=== PATIENT | male | born 1945 | race Caucasian/White ===

== ENCOUNTER 2018-03-16 08:37 | Emergency (ER) | payer MEDICARE ==
[2018-03-16 09:08] LABS: ABS Basophils 0 10^3/ul (0-0.2); ABS Eosinophils 0.1 10^3/ul (0-0.6); ABS Lymphocytes 1.8 10^3/ul (1.0-4.8); ABS Monocytes 0.6 10^3/ul (0-0.8); ABS Neutrophils 6.5 10^3/ul (1.5-7.7); ABS Nucleated RBC 0 10^3/ul; Hematocrit 37 % (42-52); Hemoglobin 12.2 g/dl (14.0-18.0); Mean Corpuscular HGB Conc 33 g/dl (31-36); Mean Corpuscular Hemoglobin 30 pg (27-31); Mean Corpuscular Volume 90 fL (80-94); Mean Platelet Volume 7.6 um3 (7.4-10.4); Nucleated Red Blood Cells % 0; Platelet Count 173 10^3/ul (150-450); Red Blood Count 4.08 10^6/ul (4.00-5.40); Red Cell Distribution Width 14 % (10.5-15)
[2018-03-16 09:27] LABS: INR 0.98 (0.77-1.02)
--- NOTE | 2018-03-16 09:35 | ED ---
HPI Chest Pain - HPI Summary HPI Summary: This patient is a 72 year old M presenting to [facility] with a chief complaint of chest congestion and sinus pressure. The patient reports having a sinus infection three weeks ago. He states it did not resolve even after his PCP prescribed him medication. He states nasal congestion came back along with chest pain radiating to his back. The patient reports the pain increases when he moves and takes deep breaths. He reports sinus congestion and denies fever, chills, post-nasal drip, and sore throat. The patient rates his pain 8/10 in severity. - History of Current Complaint Chief Complaint: EDChestPainROMI Time Seen by Provider: 03/16/18 08:51 Hx Obtained From: Patient Onset/Duration: Started Days Ago, Still Present Initial Severity: Moderate Current Severity: Moderate Pain Intensity: 8 Pain Scale Used: 0-10 Numeric Chest Pain Location: Diffuse Chest Pain Radiates To:: Back Character: Exertion Aggravating Factor(s): Exertion Alleviating Factor(s): Nothing Associated Signs and Symptoms: Positive: Chest Pain - Allergy/Home Medications Allergies/Adverse Reactions: Allergies Allergy/AdvReac Type Severity Reaction Status Date / Time No Known Allergies Allergy Verified 03/16/18 08:40 PMH/Surg Hx/FS Hx/Imm Hx Endocrine/Hematology History: Reports: Other Endocrine/Hematological Disorders - Nephrectomy, Right side Denies: Hx Diabetes Cardiovascular History: Reports: Hx Hypertension Infectious Disease History: No Infectious Disease History: Denies: Traveled Outside the [place] in Last 30 Days - Family History Known Family History: Positive: Other - Lung Cancer, mother - Social History Alcohol Use: Occasionally Smoking Status (MU): Former Smoker Type: Cigarettes Review of Systems Negative: Fever, Chills Positive: Nasal Discharge. Negative: Sore Throat Positive: Chest Pain Negative: Vomiting, Diarrhea, Nausea All Other Systems Reviewed And Are Negative: Yes Physical Exam - Summary Physical Exam Summary: VITAL SIGNS: Reviewed. GENERAL: Patient is a well-developed and nourished MALE who is lying comfortable in the stretcher. Patient is not in any acute respiratory distress.Obese. HEAD AND FACE: No signs of trauma. No ecchymosis, hematomas or skull depressions. No sinus tenderness.Nasal congestion. EYES: PERRLA, EOMI x 2, No injected conjunctiva, no nystagmus. EARS: Hearing grossly intact. Ear canals and tympanic membranes are within normal limits. MOUTH: Oropharynx within normal limits. NECK: Supple, trachea is midline, no adenopathy, no JVD, no carotid bruit, no c- spine tenderness, neck with full ROM. CHEST: Symmetric, reproducible chest tenderness. LUNGS: Coarse breath sounds bilaterally. No wheezing or crackles. CVS: Regular rate and rhythm, S1 and S2 present, no murmurs or gallops appreciated. ABDOMEN: Soft, non-tender. Distended. No rebound no guarding, and no masses palpated. Bowel sounds are normal. EXTREMITIES: FROM in all major joints, no edema, no cyanosis or clubbing. NEURO: Alert and oriented x 3. No acute neurological deficits. Speech is normal and follows commands. SKIN: Dry and warm Triage Information Reviewed: Yes Vital Signs On Initial Exam: Initial Vitals Temp Pulse Resp BP Pulse Ox 97.1 F 63 16 201/174 97 03/16/18 08:41 03/16/18 08:41 03/16/18 08:41 03/16/18 08:41 03/16/18 08:41 Vital Signs Reviewed: Yes Diagnostics - Vital Signs Vital Signs Temp Pulse Resp BP Pulse Ox 03/16/18 08:41 97.1 F 63 16 201/174 97 - Laboratory Lab Results: Lab Results 03/16/18 03/16/18 03/16/18 Range/Units 09:00 09:00 09:00 WBC 9.0 (3.5-10.8) 10^3/ul RBC 4.08 (4.00-5.40) 10^6/ul Hgb 12.2 L (14.0-18.0) g/dl Hct 37 L (42-52) % MCV 90 (80-94) fL MCH 30 (27-31) pg MCHC 33 (31-36) g/dl RDW 14 (10.5-15) % Plt Count 173 (150-450) 10^3/ul MPV 7.6 (7.4-10.4) um3 Neut % (Auto) 72.0 (38-83) % Lymph % (Auto) 20.0 L (25-47) % [place] % (Auto) 6.6 (0-7) % Eos % (Auto) 1.0 (0-6) % Baso % (Auto) 0.4 (0-2) % Absolute Neuts (auto) 6.5 (1.5-7.7) 10^3/ul Absolute Lymphs (auto) 1.8 (1.0-4.8) 10^3/ul Absolute Monos (auto) 0.6 (0-0.8) 10^3/ul Absolute Eos (auto) 0.1 (0-0.6) 10^3/ul Absolute Basos (auto) 0 (0-0.2) 10^3/ul Absolute Nucleated RBC 0 10^3/ul Nucleated RBC % 0 INR (Anticoag Therapy) 0.98 (0.77-1.02) APTT 33.8 (26.0-36.3) seconds Sodium 140 (135-145) mmol/L Potassium 4.5 (3.5-5.0) mmol/L Chloride 105 (101-111) mmol/L Carbon Dioxide 29 (22-32) mmol/L Anion Gap 6 (2-11) mmol/L BUN 21 (6-24) mg/dL Creatinine 1.01 (0.67-1.17) mg/dL Est GFR ( Amer) 88.4 (>60) Est GFR (Non-Af Amer) 73.0 (>60) BUN/Creatinine Ratio 20.8 H (8-20) Glucose 110 H (70-100) mg/dL Lactic Acid (0.5-2.0) mmol/L Calcium 9.1 (8.6-10.3) mg/dL Total Bilirubin 0.30 (0.2-1.0) mg/dL AST 16 (13-39) U/L ALT 18 (7-52) U/L Alkaline Phosphatase 63 (34-104) U/L Total Creatine Kinase 162 (10-223) U/L CK-MB (CK-2) 5.8 (0.6-6.3) ng/mL Troponin I 0.01 (<0.04) ng/mL B-Natriuretic Peptide ( - 100) pg/mL Total Protein 7.5 (6.4-8.9) g/dL Albumin 3.2 (3.2-5.2) g/dL Globulin 4.3 H (2-4) g/dL Albumin/Globulin Ratio 0.7 L (1-3) TSH Pending 03/16/18 03/16/18 Range/Units 09:00 09:00 WBC (3.5-10.8) 10^3/ul RBC (4.00-5.40) 10^6/ul Hgb (14.0-18.0) g/dl Hct (42-52) % MCV (80-94) fL MCH (27-31) pg MCHC (31-36) g/dl RDW (10.5-15) % Plt Count (150-450) 10^3/ul MPV (7.4-10.4) um3 Neut % (Auto) (38-83) % Lymph % (Auto) (25-47) % [place] % (Auto) (0-7) % Eos % (Auto) (0-6) % Baso % (Auto) (0-2) % Absolute Neuts (auto) (1.5-7.7) 10^3/ul Absolute Lymphs (auto) (1.0-4.8) 10^3/ul Absolute Monos (auto) (0-0.8) 10^3/ul Absolute Eos (auto) (0-0.6) 10^3/ul Absolute Basos (auto) (0-0.2) 10^3/ul Absolute Nucleated RBC 10^3/ul Nucleated RBC % INR (Anticoag Therapy) (0.77-1.02) APTT (26.0-36.3) seconds Sodium (135-145) mmol/L Potassium (3.5-5.0) mmol/L Chloride (101-111) mmol/L Carbon Dioxide (22-32) mmol/L Anion Gap (2-11) mmol/L BUN (6-24) mg/dL Creatinine (0.67-1.17) mg/dL Est GFR ( Amer) (>60) Est GFR (Non-Af Amer) (>60) BUN/Creatinine Ratio (8-20) Glucose (70-100) mg/dL Lactic Acid 1.0 (0.5-2.0) mmol/L Calcium (8.6-10.3) mg/dL Total Bilirubin (0.2-1.0) mg/dL AST (13-39) U/L ALT (7-52) U/L Alkaline Phosphatase (34-104) U/L Total Creatine Kinase (10-223) U/L CK-MB (CK-2) (0.6-6.3) ng/mL Troponin I (<0.04) ng/mL B-Natriuretic Peptide 51 ( - 100) pg/mL Total Protein (6.4-8.9) g/dL Albumin (3.2-5.2) g/dL Globulin (2-4) g/dL Albumin/Globulin Ratio (1-3) TSH Result Diagrams: 03/16/18 09:00 03/16/18 09:00 Lab Statement: Any lab studies that have been ordered have been reviewed, and results considered in the medical decision making process. - Radiology Chest XR Xray Interpretation: No Acute Changes Radiology Interpretation Completed By: Radiologist - No active cardiopulmonary disease is noted. ED Provider has reviewed this report. - EKG 0852 Cardiac Rate: NL - 68 BPM EKG Rhythm: Sinus Rhythm ST Segment: Normal Re-Evaluation - Re-Evaluation First Eval Re-Evaluation Time: 13:01 Change: Unchanged Comment: Discussed results and plan for discharge. Chest Pain Course/Dx - Course Assessment/Plan: This patient is a 72 year old M presenting to [facility] with a chief complaint of chest congestion and sinus pressure. The patient reports having a sinus infection three weeks ago. He states it did not resolve even after his PCP prescribed him medication. He states nasal congestion came back along with chest pain radiating to his back. The patient reports the pain increases when he moves and takes deep breaths. He reports sinus congestion and denies fever, chills, post-nasal drip, and sore throat. The patient rates his pain 8/10 in severity. Blood test results without any significant abnormality except for slight anemia, glucose of 110. And 2 troponins 4 hours apart is 0.01. Chest x-ray impression: no active cardiopulmonary disease. EKG shows no ST elevations. In the ED course the patient was given Toradol and after these medications the symptoms have significantly improved. The patient reports that the pain is only 1 out of 10 on only when he moves his left upper extremity or takes a deep breath. I have no suspicion at this point for acute, syndrome or pulmonary embolus is the patient is not hypoxic or tachycardic. Therefore the patient will be discharged home with follow-up with PCP. Patient is hemodynamically stable alert and oriented 3. I discussed all the findings and test results with the patient. Patient was instructed to return to the emergency room immediately if any of the symptoms return or worsens. Plan of care was discussed with the patient and understands and agrees. All questions were answered at patient satisfaction. There were no further complaints or concerns. Lung exam before discharge: CTA B/L. Good air exchange. No wheezing or crackles heard. CVS: S1 and S2 present. No murmurs appreciated. Patient is alert and oriented x 3. Patient is hemodynamically stable. Patient will be discharged home with follow up PCP in the next 2-3 days - Chest Pain Differential Diagnosis/HQI/PQRI: Acute MS, ACS, Angina, CHF, Chest Wall, GI Disease, Lower Respiratory Infection, Pulmonary Edema - Diagnoses Provider Diagnoses: Atypical chest pain Discharge - Sign-Out/Discharge Documenting (check all that apply): Patient Departure - Discharge - Discharge Plan Condition: Stable Disposition: HOME Prescriptions: Naproxen TAB* [Naprosyn 250 mg TAB*] 500 mg PO BID #20 tab Patient Education Materials: Chest Pain (ED) Referrals: Krystian Quigley MD [Primary Care Provider] - Additional Instructions: Return to ED if experiencing any new or worsening symptoms. - Billing Disposition and Condition Condition: STABLE Disposition: Home - Attestation Statements Document Initiated by Scribe: Yes Documenting Scribe: Pramod Levy Provider For Whom Luz is Documenting (Include Credential): Lino Moraes MD Scribe Attestation: Pramod Arroyo scribed for Lino Moraes MD on 03/17/18 at 0741. Scribe Documentation Reviewed: Yes Provider Attestation: The documentation as recorded by the Pramod shin accurately reflects the service I personally performed and the decisions made by , Lino Moraes MD
--- NOTE | 2018-03-16 10:23 | RAD ---
Indication: Chest pain. Single frontal view of the chest performed at 0950 hours was reviewed. Comparison is made with previous exam dated August 10, 2011. No mediastinal shift is noted. Heart is of normal size and configuration. Lung barber appear clear. IMPRESSION: NO ACTIVE CARDIOPULMONARY DISEASE IS NOTED.
[2018-03-16] MEDS ORDERED: Ketorolac INJ* 30 MG/ML 1 ML VIAL IV PUSH ONE (10:54)
[2018-03-16 12:10] VITALS: BP 141/96
== END 2018-03-16 13:14 | disposition home or self-care (01) ==
LOC: ED 08:37
DX: R07.89 Other chest pain (principal); R09.81 Nasal congestion; Z87.891 Personal history of nicotine dependence
CPT/HCPCS: 36415; 71045; 80053; 82550; 82553; 83605; 83880; 84443; 84484; 85025; 85610; 85730; 93005; 96374; 99282; J1885

== ENCOUNTER 2018-05-14 16:41 | Emergency (ER) | payer MEDICARE ==
[2018-05-14 18:38] LABS: ABS Basophils 0 10^3/ul (0-0.2); ABS Eosinophils 0 10^3/ul (0-0.6); ABS Lymphocytes 0.8 10^3/ul (1.0-4.8); ABS Monocytes 0.4 10^3/ul (0-0.8); ABS Neutrophils 6.6 10^3/ul (1.5-7.7); ABS Nucleated RBC 0 10^3/ul; Eosinophil % 0.1 %; Hematocrit 33 % (42-52); Hemoglobin 11.1 g/dl (14.0-18.0); Lymphocyte % 10.6 %; Mean Corpuscular HGB Conc 34 g/dl (31-36); Mean Corpuscular Hemoglobin 30 pg (27-31); Mean Corpuscular Volume 91 fL (80-94); Mean Platelet Volume 8.2 fL (7.4-10.4); Nucleated Red Blood Cells % 0; Platelet Count 196 10^3/ul (150-450); Red Blood Count 3.65 10^6/ul (4.00-5.40); Red Cell Distribution Width 14 % (10.5-15); White Blood Count 7.8 10^3/ul (3.5-10.8)
[2018-05-14] MEDS ORDERED: methylPREDNISolone 125 MG* 2 ML VIAL IV ONE (19:02)
[2018-05-14] MEDS ORDERED: Albuterol/Ipratropium NEB.SOL* Albuterol 2.5 MG/Ipratropium 0.5 MG 3 ML INH ONE (19:02)
[2018-05-14] MEDS ORDERED: NS 0.9% 1000 ML* 1,000 ML IV ONE (19:31)
--- NOTE | 2018-05-14 19:35 | ED ---
Respiratory - HPI Summary HPI Summary: 73-year-old male presents with cough for the past couple days. He states that the cough is productive. Admits to shortness breath. No chest pain. He also states that he has right upper quadrant pain. 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 No urinary symptoms. No nausea or vomiting. No sore throat. Denies any fevers. he was seen by his primary and started on prednisone and Bactrim yesterday. He states he has not had much improvement. He states he has a history of asthma but is not really sure about COPD. He was a smoker. has some back pain. no increase in weight. no pain or swelling in calf muscles. - History of Current Complaint Chief Complaint: EDShortnessOfBreath Stated Complaint: DIFF BREATHING/COUGH Time Seen by Provider: 05/14/18 18:53 Pain Intensity: 8 - Allergy/Home Medications Allergies/Adverse Reactions: Allergies Allergy/AdvReac Type Severity Reaction Status Date / Time No Known Allergies Allergy Verified 03/16/18 08:40 PMH/Surg Hx/FS Hx/Imm Hx Endocrine/Hematology History: Reports: Other Endocrine/Hematological Disorders - Nephrectomy, Right side Denies: Hx Diabetes Cardiovascular History: Reports: Hx Hypertension Infectious Disease History: No Infectious Disease History: Reports: Traveled Outside the [place] in Last 30 Days - Family History Known Family History: Positive: Other - Lung Cancer, mother - Social History Alcohol Use: Occasionally Substance Use Type: Reports: Marijuana Substance Use Comment - Amount & Last Used: not used often Smoking Status (MU): Current Some Day Smoker Type: Cigarettes Review of Systems Negative: Fever Negative: Chest Pain Positive: Shortness Of Breath, Cough Positive: Abdominal Pain. Negative: Vomiting, Nausea All Other Systems Reviewed And Are Negative: Yes Physical Exam Triage Information Reviewed: Yes Vital Signs On Initial Exam: Initial Vitals Temp Pulse Resp BP Pulse Ox 98 F 82 18 137/91 94 05/14/18 16:51 05/14/18 16:51 05/14/18 16:51 05/14/18 16:51 05/14/18 16:51 Vital Signs Reviewed: Yes Appearance: Positive: Well-Appearing Skin: Positive: Warm, Dry Head/Face: Positive: Normal Head/Face Inspection Eyes: Positive: Normal, EOMI, MARA, Conjunctiva Clear ENT: Positive: Normal ENT inspection, Pharynx normal, TMs normal Respiratory/Lung Sounds: Positive: Clear to Auscultation, Breath Sounds Present Cardiovascular: Positive: Normal, RRR Abdomen Description: Positive: Soft, Other: - tenderness RUQ pain Bowel Sounds: Positive: Present Musculoskeletal: Positive: Normal Neurological: Positive: Normal Psychiatric: Positive: Normal Diagnostics - Vital Signs Vital Signs Temp Pulse Resp BP Pulse Ox 05/14/18 19:31 98.7 F 05/14/18 19:00 78 26 98 05/14/18 18:55 76 27 97 05/14/18 16:51 98 F 82 18 137/91 94 - Laboratory Lab Results: Lab Results 05/14/18 05/14/18 05/14/18 Range/Units 18:30 18:30 18:30 WBC 7.8 (3.5-10.8) 10^3/ul RBC 3.65 L (4.00-5.40) 10^6/ul Hgb 11.1 L (14.0-18.0) g/dl Hct 33 L (42-52) % MCV 91 (80-94) fL MCH 30 (27-31) pg MCHC 34 (31-36) g/dl RDW 14 (10.5-15) % Plt Count 196 (150-450) 10^3/ul MPV 8.2 (7.4-10.4) fL Neut % (Auto) 84.4 % Lymph % (Auto) 10.6 % [place] % (Auto) 4.8 % Eos % (Auto) 0.1 % Baso % (Auto) 0.1 % Absolute Neuts (auto) 6.6 (1.5-7.7) 10^3/ul Absolute Lymphs (auto) 0.8 L (1.0-4.8) 10^3/ul Absolute Monos (auto) 0.4 (0-0.8) 10^3/ul Absolute Eos (auto) 0 (0-0.6) 10^3/ul Absolute Basos (auto) 0 (0-0.2) 10^3/ul Absolute Nucleated RBC 0 10^3/ul Nucleated RBC % 0 D-Dimer, Quantitative (Less Than 230) ng/mL Sodium 137 (135-145) mmol/L Potassium 4.4 (3.5-5.0) mmol/L Chloride 101 (101-111) mmol/L Carbon Dioxide 24 (22-32) mmol/L Anion Gap 12 H (2-11) mmol/L BUN 22 (6-24) mg/dL Creatinine 1.13 (0.67-1.17) mg/dL Est GFR ( Amer) 77.4 (>60) Est GFR (Non-Af Amer) 64.0 (>60) BUN/Creatinine Ratio 19.5 (8-20) Glucose 313 H (70-100) mg/dL Lactic Acid 2.2 H* (0.5-2.0) mmol/L Calcium 9.3 (8.6-10.3) mg/dL Total Bilirubin 0.20 (0.2-1.0) mg/dL AST 12 L (13-39) U/L ALT 13 (7-52) U/L Alkaline Phosphatase 64 (34-104) U/L Troponin I 0.00 (<0.04) ng/mL C-Reactive Protein 10.68 H (<8.01) mg/L B-Natriuretic Peptide (<=100) pg/mL Total Protein 8.3 (6.4-8.9) g/dL Albumin 3.1 L (3.2-5.2) g/dL Globulin 5.2 H (2-4) g/dL Albumin/Globulin Ratio 0.6 L (1-3) 05/14/18 05/14/18 Range/Units 18:30 18:30 WBC (3.5-10.8) 10^3/ul RBC (4.00-5.40) 10^6/ul Hgb (14.0-18.0) g/dl Hct (42-52) % MCV (80-94) fL MCH (27-31) pg MCHC (31-36) g/dl RDW (10.5-15) % Plt Count (150-450) 10^3/ul MPV (7.4-10.4) fL Neut % (Auto) % Lymph % (Auto) % [place] % (Auto) % Eos % (Auto) % Baso % (Auto) % Absolute Neuts (auto) (1.5-7.7) 10^3/ul Absolute Lymphs (auto) (1.0-4.8) 10^3/ul Absolute Monos (auto) (0-0.8) 10^3/ul Absolute Eos (auto) (0-0.6) 10^3/ul Absolute Basos (auto) (0-0.2) 10^3/ul Absolute Nucleated RBC 10^3/ul Nucleated RBC % D-Dimer, Quantitative < 200 (Less Than 230) ng/mL Sodium (135-145) mmol/L Potassium (3.5-5.0) mmol/L Chloride (101-111) mmol/L Carbon Dioxide (22-32) mmol/L Anion Gap (2-11) mmol/L BUN (6-24) mg/dL Creatinine (0.67-1.17) mg/dL Est GFR ( Amer) (>60) Est GFR (Non-Af Amer) (>60) BUN/Creatinine Ratio (8-20) Glucose (70-100) mg/dL Lactic Acid (0.5-2.0) mmol/L Calcium (8.6-10.3) mg/dL Total Bilirubin (0.2-1.0) mg/dL AST (13-39) U/L ALT (7-52) U/L Alkaline Phosphatase (34-104) U/L Troponin I (<0.04) ng/mL C-Reactive Protein (<8.01) mg/L B-Natriuretic Peptide 157 H (<=100) pg/mL Total Protein (6.4-8.9) g/dL Albumin (3.2-5.2) g/dL Globulin (2-4) g/dL Albumin/Globulin Ratio (1-3) Result Diagrams: 05/14/18 18:30 05/14/18 18:30 Lab Statement: Any lab studies that have been ordered have been reviewed, and results considered in the medical decision making process. - Radiology chest Radiology Interpretation Completed By: Radiologist Summary of Radiographic Findings: IMPRESSION: LOW LUNG VOLUMES, NO EVIDENCE FOR ACUTE FINDING. - EKG No standard instances Cardiac Rate: NL EKG Rhythm: Sinus Rhythm Summary of EKG Findings: sinus rhythm, similar to previous Re-Evaluation - Re-Evaluation First Eval Re-Evaluation Time: 20:16 Change: Improved Comment: feeling better after breathing treatment Disposition - Course Course Of Treatment: 73-year-old male presents with cough for the past couple days. He states that the cough is productive. Admits to shortness breath. No chest pain. He also states that he has right upper quadrant pain. 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 No urinary symptoms. No nausea or vomiting. No sore throat. Denies any fevers. he was seen by his primary and started on prednisone and Bactrim yesterday. He states he has not had much improvement. He states he has a history of asthma but is not really sure about COPD. He was a smoker. has some back pain. on exam lungs CTA. heart RRR. tenderness RUQ abd. chest xray normal. wbc normal. crp slightly elevated. lactic slighly elevated. procalciotonin normal. gave steriod and breathing treatment and patient feeling better. patient did not destat while in ED. gallbladder u/s shows possible stone vs sludge. lft and wbc normal so will have follow up with primary if continues to have pain in the area. on d/c patient no longer leal tenderness but having flank pain so pain is likely due to cough. will discharge with inhaler. told to follow up with primary. patient understand and agrees with plan. - Differential Dx - Cardiopulmonary Differential Diagnoses - Cardiopulmonary: Bronchitis, Influenza, Lower Resp Infection - Diagnoses Provider Diagnoses: Bronchitis, Abdominal pain Discharge - Sign-Out/Discharge Documenting (check all that apply): Patient Departure - Discharge Plan Condition: Good Disposition: HOME Prescriptions: Albuterol HFA INHALER* [Ventolin HFA Inhaler*] 1 puff INH Q6H PRN #1 mdi PRN Reason: Cough Patient Education Materials: Acute Bronchitis (ED) Referrals: Krystian Quigley MD [Primary Care Provider] - Additional Instructions: Use inhaler up to two puffs every 4-6 hours for cough and wheezing continue medication prescribed by primary Take Tylenol for pain every 6 hours Return to ED if develop severe shortness of breath, worsening chest pain, or any new or worsening symptoms - Billing Disposition and Condition Condition: GOOD Disposition: Home
[2018-05-14] MEDS ORDERED: guaiFENesin/CODIEN 100MG-10MG* 5 ML UDC PO ONE (22:58)
[2018-05-14] MEDS ORDERED: A lbuterol Hfa (PREPAK) 1 MDI - ED TAKE HOME DISPENSING ONLY INHH ONE (22:58)
[2018-05-14 23:27] VITALS: BP 143/89
== END 2018-05-14 23:44 | disposition home or self-care (01) ==
LOC: ED 16:41
DX: J40 Bronchitis, not specified as acute or chronic (principal); F17.210 Nicotine dependence, cigarettes, uncomplicated; I10 Essential (primary) hypertension; R10.11 Right upper quadrant pain
CPT/HCPCS: 36415; 71046; 76705; 80053; 83605; 83690; 83880; 84145; 84484; 85025; 85379; 86140; 87040; 93005; 96361; 96374; 99284; A9270-GY; J2930

== ENCOUNTER 2018-05-16 13:43 | Inpatient (IN) | payer MEDICARE ==
--- NOTE | 2018-05-16 14:10 | ED ---
HPI Chest Pain - HPI Summary HPI Summary: This patient is a 73-year-old male who presents to the emergency department with chief complaint of having left-sided chest pain along with some shortness of breath since 05/09/18. He describes the pain as a discomfort. The patient reports that he has been in the emergency room for the third time, the urgent care twice, and has also seen primary care physician twice for the same complaints. However, he reports that symptoms still present and he has his intermittent chest pain in the left side of the chest without any radiation. At triage he rated his chest pain as a 9/10, however, right now he rates his pain at about 2 out of 10. He claims that his pain occasionally goes into his back but denies experiencing this today. He denies any nausea or vomiting, denies any diaphoresis, denies any dizziness or palpitations. Patient reports that he is taking antibiotics and coughing medications. He also reports that he has this productive cough but now is getting better and he currently has a dry cough. The patient reports that he is taking Bactrim and prednisone. The patient is a nonsmoker with occasional alcohol intake and occasional marijuana use. He has a past medical history which is significant for hypertension, dyslipidemia, and asthma. Patient has no other complaints. - History of Current Complaint Chief Complaint: EDChestPainROMI Time Seen by Provider: 05/16/18 13:55 Hx Obtained From: Patient Onset/Duration: Started Days Ago, Still Present Timing: Intermittent Initial Severity: Mild Current Severity: Mild Pain Intensity: 2 Pain Scale Used: 0-10 Numeric Chest Pain Location: Diffuse - left sided Chest Pain Radiates: No - Allergy/Home Medications Allergies/Adverse Reactions: Allergies Allergy/AdvReac Type Severity Reaction Status Date / Time No Known Allergies Allergy Verified 03/16/18 08:40 Home Medications: Home Medications Codeine Phosphate/Guaifenesin [Robafen AC Oral Solution] 5 - 10 ml PO Q6HR PRN 05/16/18 [History Confirmed 05/16/18] Finasteride TAB* [Proscar TAB*] 5 mg PO DAILY 05/16/18 [History Confirmed ] Meloxicam(NF) [Mobic(NF)] 7.5 mg PO BID 05/16/18 [History Confirmed 05/16/18] Naproxen TAB* [Naprosyn 250 mg TAB*] 500 mg PO BID PRN 05/16/18 [History Confirmed 05/16/18] Simvastatin TAB(NF) [Zocor(NF)] 20 mg PO DAILY 05/16/18 [History Confirmed 05/16] Sulfamethox/Trimethoprim DS* [Bactrim DS 800/160 TAB*] 1 tab PO BID 05/16/18 [ History Confirmed 05/16/18] Tamsulosin CAP* [Flomax CAP*] 0.4 mg PO DAILY 05/16/18 [History Confirmed ] amLODIPine TAB* [Norvasc 5 mg TAB*] 10 mg PO DAILY 05/16/18 [History Confirmed 05/16/18] predniSONE TAB* [Deltasone 20 MG TAB*] 40 mg PO DAILY 05/16/18 [History Confirmed 05/16/18] PMH/Surg Hx/FS Hx/Imm Hx Endocrine/Hematology History: Reports: Other Endocrine/Hematological Disorders - Nephrectomy, Right side Denies: Hx Diabetes Cardiovascular History: Reports: Hx Hypertension, Other Cardiovascular Problems/ Disorders - dyslipidemia Respiratory History: Reports: Hx Asthma - pt is poor historian, Hx Chronic Obstructive Pulmonary Disease (COPD) Infectious Disease History: No Infectious Disease History: Reports: Traveled Outside the [place] in Last 30 Days - Family History Known Family History: Positive: Other - Lung Cancer, mother - Social History Alcohol Use: Occasionally Substance Use Type: Reports: Marijuana Substance Use Comment - Amount & Last Used: not used often Smoking Status (MU): Current Some Day Smoker Type: Cigarettes Review of Systems Negative: Skin Diaphoresis Positive: Palpitations, Chest Pain Positive: Shortness Of Breath, Cough Negative: Vomiting, Diarrhea, Nausea Neurological: Other - positive: dizziness All Other Systems Reviewed And Are Negative: Yes Physical Exam - Summary Physical Exam Summary: VITAL SIGNS: Reviewed. GENERAL: Patient is an obese MALE who is lying comfortable in the stretcher. Patient is not in any acute respiratory distress. HEAD AND FACE: No signs of trauma. No ecchymosis, hematomas or skull depressions. No sinus tenderness. EYES: PERRLA, EOMI x 2, No injected conjunctiva, no nystagmus. EARS: Hearing grossly intact. Ear canals and tympanic membranes are within normal limits. MOUTH: Oropharynx within normal limits. NECK: Supple, trachea is midline, no adenopathy, no JVD, no carotid bruit, no c- spine tenderness, neck with full ROM. CHEST: Symmetric, no tenderness at palpation LUNGS: Wheezing in lungs. CVS: Regular rate and rhythm, S1 and S2 present, no murmurs or gallops appreciated. ABDOMEN: Soft, non-tender. No signs of distention. No rebound no guarding, and no masses palpated. Bowel sounds are normal. EXTREMITIES: FROM in all major joints, no edema, no cyanosis or clubbing. NEURO: Alert and oriented x 3. No acute neurological deficits. Speech is normal and follows commands. SKIN: Dry and warm Triage Information Reviewed: Yes Vital Signs On Initial Exam: Initial Vitals Temp Pulse Resp BP Pulse Ox 97.3 F 76 18 143/92 96 05/16/18 13:46 05/16/18 13:46 05/16/18 13:46 05/16/18 13:46 05/16/18 13:46 Vital Signs Reviewed: Yes Diagnostics - Vital Signs Vital Signs Temp Pulse Resp BP Pulse Ox 05/16/18 13:46 97.3 F 76 18 143/92 96 - Laboratory Result Diagrams: 05/16/18 14:03 05/16/18 14:03 Lab Statement: Any lab studies that have been ordered have been reviewed, and results considered in the medical decision making process. - Radiology CXR Radiology Interpretation Completed By: Radiologist Summary of Radiographic Findings: MILD PROMINENCE OF INTERSTITIAL MARKINGS POSSIBLY DUE TO UNDERINFLATION. VERSUS MILD CONGESTIVE HEART FAILURE. ED physician has reviewed this imaging report. - EKG 13:57 Cardiac Rate: NL - 77 bpm EKG Rhythm: Sinus Rhythm Summary of EKG Findings: no ST elevations, similar to previous EKG done . Chest Pain Course/Dx - Course Assessment/Plan: This patient is a 73-year-old male who presents to the emergency department with chief complaint of having left-sided chest pain along with some shortness of breath since 05/09/18. He describes the pain as a discomfort. The patient reports that he has been in the emergency room for the third time, the urgent care twice, and has also seen primary care physician twice for the same complaints. However, he reports that symptoms still present and he has his intermittent chest pain in the left side of the chest without any radiation. At triage he rated his chest pain as a 9/10, however, right now he rates his pain at about 2 out of 10. He claims that his pain occasionally goes into his back but denies experiencing this today. He denies any nausea or vomiting, denies any diaphoresis, denies any dizziness or palpitations. Patient reports that he is taking antibiotics and coughing medications. He also reports that he has this productive cough but now is getting better and he currently has a dry cough. The patient reports that he is taking Bactrim and prednisone. The patient is a nonsmoker with occasional alcohol intake and occasional marijuana use. He has a past medical history which is significant for hypertension, dyslipidemia, and asthma. Patient has no other complaints. Blood work without any significant abnormality except for a slight anemia, BUN is 30 and creatinine is 1.23 consistent with dehydration and acute renal injury. Glucose 120, BNP is 110. Urinalysis negative for UTI. Chest x-ray impression: Consistent with CHF. In the ED course the patient was given DuoNeb' s and Solu-Medrol since the patient was wheezing. The patient continued to the chest pain therefore the patient was given aspirin and nitroglycerin. He reports that the symptoms improved and nitroglycerin. Therefore this time I discussed my physical exam and findings with Dr. Joy from the hospitalist services who accepted the patient for admission. At this point the patient is hemodynamically stable alert and oriented 3. - Diagnoses Provider Diagnoses: Chest pain - Provider Notifications Discussed Care Of Patient With: Lionel Joy Time Discussed With Above Provider: 16:20 Instructed by Provider To: Admit As Inpatient Discharge - Sign-Out/Discharge Documenting (check all that apply): Patient Departure - admit - Discharge Plan Condition: Fair Disposition: ADMITTED TO [facility] - Billing Disposition and Condition Condition: FAIR Disposition: Admitted to [facility] - Attestation Statements Document Initiated by Luz: Yes Documenting Scribe: Darin Sánchez Provider For Whom Luz is Documenting (Include Credential): Lino Moraes MD Scribe Attestation: IDarin scribed for Lino Moraes MD on 05/16/18 at 2106. Scribe Documentation Reviewed: Yes Provider Attestation: The documentation as recorded by the Darin shin accurately reflects the service I personally performed and the decisions made by me, Lino Moraes MD Status of Scribe Document: Viewed
[2018-05-16] MEDS ORDERED: Albuterol/Ipratropium NEB.SOL* Albuterol 2.5 MG/Ipratropium 0.5 MG 3 ML INH ONE (14:22)
[2018-05-16] MEDS ORDERED: methylPREDNISolone 125 MG* 2 ML VIAL IV ONE (14:22)
[2018-05-16 14:26] LABS: ABS Basophils 0 10^3/ul (0-0.2); ABS Eosinophils 0 10^3/ul (0-0.6); ABS Lymphocytes 1.1 10^3/ul (1.0-4.8); ABS Monocytes 0.7 10^3/ul (0-0.8); ABS Nucleated RBC 0 10^3/ul; Eosinophil % 0.1 %; Hematocrit 34 % (42-52); Hemoglobin 11.2 g/dl (14.0-18.0); Lymphocyte % 13.8 %; Mean Corpuscular HGB Conc 33 g/dl (31-36); Mean Corpuscular Hemoglobin 30 pg (27-31); Mean Corpuscular Volume 91 fL (80-94); Mean Platelet Volume 7.9 fL (7.4-10.4); Nucleated Red Blood Cells % 0.1; Platelet Count 199 10^3/ul (150-450); Red Blood Count 3.71 10^6/ul (4.00-5.40); Red Cell Distribution Width 15 % (10.5-15); White Blood Count 7.8 10^3/ul (3.5-10.8)
[2018-05-16 14:43] LABS: Albumin 2.9 g/dL (3.2-5.2); Albumin/Globulin Ratio 0.6 (1-3); BUN/Creatinine Ratio 24.4 (8-20); Calcium 8.7 mg/dL (8.6-10.3); Globulin 4.9 g/dL (2-4); Magnesium 2.3 mg/dL (1.9-2.7); Potassium 4.9 mmol/L (3.5-5.0); Total Bilirubin 0.2 mg/dL (0.2-1.0); Total Protein 7.8 g/dL (6.4-8.9)
[2018-05-16] MEDS ORDERED: NS 0.9% 1000 ML* 1,000 ML IV ONE (14:50)
[2018-05-16 15:12] LABS: TSH (Thyroid Stimulating Horm) 2.19 mcIU/mL (0.34-5.60)
[2018-05-16] MEDS ORDERED: Aspirin 81 mg CHEW TAB* 81 MG TAB.CHEW PO ONE (16:15)
[2018-05-16] MEDS ORDERED: Nitroglycerin TAB 0.4 MG* 0.4 MG TAB SL ONE (16:15)
[2018-05-16 16:43] LABS: Urine Appearance Clear; Urine Bilirubin Negative (Negative); Urine Blood Negative (Negative); Urine Color Yellow; Urine Glucose Negative (Negative); Urine Ketones Negative (Negative); Urine Nitrite Negative (Negative); Urine Protein Negative (Negative); Urine Specific Gravity 1.017 (1.010-1.030); Urine Urobilinogen Negative (Negative)
[2018-05-16] MEDS ORDERED: Albuterol HFA INHALER* 8 gm MDI INH PRN (17:02)
--- NOTE | 2018-05-16 17:30 | ADMNOTE ---
Subjective Date of Service: 05/16/18 Interval History: ADMISSION HISTORY AND PHYSICAL EXAM: Allergies Allergy/AdvReac Type Severity Reaction Status Date / Time No Known Allergies Allergy Verified 03/16/18 08:40 Home Medications Medication Instructions Recorded Confirmed Type Zolpidem TAB* [Ambien*] 5 mg PO BEDTIME PRN 10/18/17 05/16/18 History Albuterol HFA INHALER* [Ventolin 1 puff INH Q6H PRN #1 mdi 05/14/18 05/16/18 Rx HFA Inhaler*] Codeine Phosphate/Guaifenesin 5 - 10 ml PO Q6HR PRN 05/16/18 05/16/18 History [Robafen AC Oral Solution] Finasteride TAB* [Proscar TAB*] 5 mg PO DAILY 05/16/18 05/16/18 History Meloxicam(NF) [Mobic(NF)] 7.5 mg PO BID 05/16/18 05/16/18 History Naproxen TAB* [Naprosyn 250 mg 500 mg PO BID PRN 05/16/18 05/16/18 History TAB*] Simvastatin TAB(NF) [Zocor(NF)] 20 mg PO DAILY 05/16/18 05/16/18 History Sulfamethox/Trimethoprim DS* 1 tab PO BID 05/16/18 05/16/18 History [Bactrim DS 800/160 TAB*] Tamsulosin CAP* [Flomax CAP*] 0.4 mg PO DAILY 05/16/18 05/16/18 History amLODIPine TAB* [Norvasc 5 mg TAB*] 10 mg PO DAILY 05/16/18 05/16/18 History predniSONE TAB* [Deltasone 20 MG 40 mg PO DAILY 05/16/18 05/16/18 History TAB*] HPI: The pt developed Family History: Findings - urnemarkable Social History: Findings - . 3 children. Son Mp Espinal is his SDM. Smoked 10 days ago. No alcohol abuse. Lives alone. 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 tonsillectomy Review of Systems - Measurements Intake and Output: Intake and Output Last 24 Hours 12/11/18 12/12/18 12/13/18 12/14/18 06:59 06:59 06:59 06:59 Intake Total 1000 Balance 1000 Weight 280 lb Intake: IV Fluids 1000 - Review of Systems Constitutional Symptoms: Negative: Weight Gain, Weight Loss, Weakness, Fatigue, Fever, Night Sweats, Unexplained Falls, Other Dermatology: Positive: Normal HEENT: Positive: Normal Eyes: Positive: Normal Thyroid: Positive: Normal Pulmonary: Positive: Cough, Sputum Cardiology: Positive: Chest Pain Gastroenterology: Positive: Normal Genital - Urinary: Positive: Normal Musculoskeletal: Negative: Joint Pain, Joint Stiffness, Arthritis, Osteoporosis, Low Back Pain , Sciatica, Joint Deformities, Kyphoscoliosis, Other Endocrinology: Positive: Obesity Hematologic/Lymphatic: Negative: Anemia, Easy Brusing, Hx Leukemia, Hx Lymphoma, Use of Anticoagulant, Use of Antiplatelet Drugs, Other Neurology: Positive: Normal Psychiatry: Positive: Normal Allergic/Immunologic: Negative: Hx Anaphylaxis, Hx Angioedema, Hx Environmental, Hx Seasonal, Athsma, Hx HIV, Immunocompromise, Swollen Glands LymphNodes, Other Objective Active Medications: Albuterol (Ventolin Hfa Inhaler*) 1 puff INH Q6H PRN PRN Reason: COUGH Amlodipine Besylate (Norvasc Tab*) 10 mg PO DAILY [facility] Cefuroxime Axetil (Ceftin Tab(*)) 500 mg PO BID [facility] Enoxaparin Sodium (Lovenox(*)) 40 mg SUBCUT Q24H [facility] Finasteride (Proscar Tab*) 5 mg PO DAILY [facility] Fluticasone Propionate (Flovent Diskus 250 Mcg(Nf)) 2 puff INH BID [facility] Meloxicam (Mobic(Nf)) 7.5 mg PO BID [facility] Prednisone (Deltasone Tab*) 40 mg PO DAILY [facility] Simvastatin (Zocor(Nf)) 20 mg PO DAILY [facility] Tamsulosin HCl (Flomax Cap*) 0.4 mg PO DAILY [facility] Vital Signs - 8 hr 05/16/18 05/16/18 05/16/18 13:46 13:57 13:58 Temperature 97.3 F Pulse Rate 76 78 76 Respiratory 18 17 29 Rate Blood Pressure 143/92 143/87 (mmHg) O2 Sat by Pulse 96 95 95 Oximetry 05/16/18 05/16/18 05/16/18 14:00 14:19 15:00 Temperature Pulse Rate 74 75 Respiratory 27 22 Rate Blood Pressure (mmHg) O2 Sat by Pulse 95 94 95 Oximetry 05/16/18 05/16/18 05/16/18 15:04 15:09 15:27 Temperature Pulse Rate 73 75 73 Respiratory 30 21 17 Rate Blood Pressure 139/80 135/89 (mmHg) O2 Sat by Pulse 94 100 96 Oximetry 05/16/18 05/16/18 05/16/18 15:57 16:00 16:27 Temperature Pulse Rate 75 73 76 Respiratory 25 24 15 Rate Blood Pressure 140/96 140/78 (mmHg) O2 Sat by Pulse 100 98 93 Oximetry 05/16/18 05/16/18 16:57 17:00 Temperature Pulse Rate 72 71 Respiratory 23 22 Rate Blood Pressure 128/87 (mmHg) O2 Sat by Pulse 96 96 Oximetry Oxygen Devices in Use Now: None Appearance: Alert, partly up on ED stretcher. In good spirits. Looks comfortable. No cough during my visit. Eyes: No Scleral Icterus Ears/Nose/Mouth/Throat: Clear Oropharnyx, Mucous Membranes Moist Neck: NL Appearance and Movements; NL JVP, No Thyroid Enlargement, Masses Respiratory: Symmetrical Chest Expansion and Respiratory Effort, Clear to Percussion, - - few scattered rhonchi Cardiovascular: NL Sounds; No Murmurs; No JVD, RRR, No Edema, - Abdominal: NL Sounds; No Tenderness; No Distention, No Hepatosplenomegaly, - Extremities: No Edema, No Clubbing, Cyanosis, - Skin: No Rash or Ulcers, No Nodules or Sclerosis, - Neurological: Alert and Oriented x 3, NL Sensation Result Diagrams: 05/16/18 14:03 05/16/18 14:03 Assess/Plan/Problems-Billing Assessment: - Patient Problems (1) Chest pain Current Visit: Yes Status: Acute Code(s): R07.9 - CHEST PAIN, UNSPECIFIED SNOMED Code(s): 65016812 Comment: Pain is induced by cough or twisting his body, was reproduced by moderate sternal pressure. Doubt cardiac etiology. Stress test Showed small area of reversible ischemia, questionable clinical significance. Oxycodone/ APAP PRN pain. (2) Acute bronchitis Current Visit: Yes Status: Acute Code(s): J20.9 - ACUTE BRONCHITIS, UNSPECIFIED SNOMED Code(s): 86366543 Comment: Start cefuroxime 05/16. Continue prednisone taper. Needs better controlling meds for COPD at home, was wheezing on arrival in ED. (3) H/O unilateral nephrectomy Current Visit: Yes Status: Acute Code(s): Z90.5 - ACQUIRED ABSENCE OF KIDNEY SNOMED Code(s): 68777591064583 Comment: Needs outpt fup. (4) Morbid obesity Current Visit: Yes Status: Acute Code(s): E66.01 - MORBID (SEVERE) OBESITY DUE TO EXCESS CALORIES SNOMED Code(s): 753757974 Comment: BMI 49.9 05/16/18. (5) HTN (hypertension) Current Visit: Yes Status: Acute Code(s): I10 - ESSENTIAL (PRIMARY) HYPERTENSION SNOMED Code(s): 96683888 Comment: Continue home dose amlodipine.
[2018-05-16] MEDS: Enoxaparin(*) 40 MG/0.4 ML SYR SUBCUT SCH (17:42)
[2018-05-16] MEDS ORDERED: Nitroglycerin TAB 0.4 MG* 0.4 MG TAB SL PRN (18:15)
[2018-05-16] MEDS ORDERED: Morphine VIAL* 4 MG/ML VIAL (1 ml vial) IV PRN (18:18)
[2018-05-16] MEDS: CMCS: Meloxicam(NF) 7.5 MG TAB PO SCH (20:49)
[2018-05-16] MEDS: ceFUROXime TAB(*) 250 MG PO SCH (20:50)
[2018-05-16] MEDS: Mometasone 220 MCG MDI INH SCH (21:06)
[2018-05-16] MEDS: Morphine VIAL* 4 MG/ML VIAL (1 ml vial) IV PRN (23:37)
[2018-05-16] MEDS: Senna TAB PO PRN (23:39)
[2018-05-16] MEDS: Docusate CAP* 100 MG PO SCH (23:40)
[2018-05-17] MEDS: Melatonin 3 MG TAB PO PRN (00:41)
[2018-05-17] MEDS: guaiFENesin LIQ* 100 MG/5 ML UDC PO PRN ×2 (02:13→19:11)
[2018-05-17] MEDS: Morphine VIAL* 4 MG/ML VIAL (1 ml vial) IV PRN (04:14)
[2018-05-17] MEDS: Mometasone 220 MCG MDI INH SCH ×2 (07:29→20:14)
[2018-05-17] MEDS: Mometasone/Formoter 200/5 MDI INH SCH ×2 (08:39→20:13)
[2018-05-17] MEDS ORDERED: predniSONE TAB* 20 MG PO SCH (09:00)
[2018-05-17] MEDS ORDERED: Perflutren Lipid Microsphere* 3 ML VIAL ONE (11:06)
[2018-05-17] MEDS: Docusate CAP* 100 MG PO SCH ×2 (11:48→20:39)
[2018-05-17] MEDS: Finasteride TAB* 5 MG PO SCH (11:48)
[2018-05-17] MEDS: CMCS: Meloxicam(NF) 7.5 MG TAB PO SCH ×2 (11:48→20:39)
[2018-05-17] MEDS: Atorvastatin* 10 MG TAB PO SCH (11:49)
[2018-05-17] MEDS: ceFUROXime TAB(*) 250 MG PO SCH ×2 (11:49→20:39)
[2018-05-17] MEDS: Tamsulosin CAP* 0.4 MG PO SCH (11:49)
[2018-05-17] MEDS: amLODIPine TAB* 5 MG PO SCH (11:49)
[2018-05-17] MEDS ORDERED: Regadenoson* 0.4 MG/5 ML SYRINGE ONE (12:04)
[2018-05-17] MEDS: oxyCODONE/Acetamin 5/325 MG* TAB PO PRN ×2 (14:51→19:08)
--- NOTE | 2018-05-17 14:53 | ECHO ---
Patient: TREVON BLANCO [facility] Rec#: [id number] : 1945 Date: 05/17/2018 Age: 73y Height: 170.2 cm / 67.0 in Weight: 127.3 kg / 280.6 lbs Sex: M BSA: 2.34 Room#: [facility] Admit Date#: 05/16/2018 Type: Inpatient Referring: Shan Samuel Reading: Yuan Herring MD Conventional Machinist: Florence Beaulieu RN RDCS CC: Krystian Quigley MD Transthoracic Echocardiogram Indication: Chest pain BP: 126/78 HR: 68 Rhythm: NSR Findings History: HTN, HLD, asthma, COPD, smoker Technical Comments: The study is technically limited due to patient body habitus. The study is technically limited due to the patient's history of COPD. The study is technically limited due to the patient's smoking history. Left Ventricle: The left ventricular chamber size is normal. Moderate concentric left ventricular hypertrophy is observed. Global left ventricular wall motion and contractility are within normal limits. There is normal left ventricular systolic function. The estimated ejection fraction is 55-60%. Abnormal left ventricular diastolic function is observed. Abnormal left ventricular diastolic filling is observed, consistent with impaired relaxation. Left Atrium: The left atrium is mildly dilated. Right Ventricle: The right ventricle wall thickness is mildly increased.7 mm The right ventricle is mild to moderately dilated. The right ventricular global systolic function is low normal. Right Atrium: The right atrium is mildly dilated. Aortic Valve: The aortic valve structure is not well visualized. The aortic valve leaflets are mildly thickened. There is no evidence of aortic regurgitation. There is no evidence of aortic stenosis. Mitral Valve: There is posterior mitral annular calcification. The mitral valve leaflets are mildly thickened. There is trace to mild mitral regurgitation. There is no evidence of mitral stenosis. Tricuspid Valve: The tricuspid valve structure is not well visualized. There is trace tricuspid regurgitation. Unable to estimate the right ventricular systolic pressure. There is no tricuspid stenosis. Pulmonic Valve: The pulmonic valve structure is not well visualized. There is a trace pulmonic regurgitation. There is no pulmonic stenosis. Pericardium: There is no significant pericardial effusion. A pericardial fat pad is visualized. Aorta: There is moderate dilatation of the ascending aorta. The aortic arch is not well visualized. There is mild dilatation of the aortic root. Pulmonary Artery: The main pulmonary artery is not well visualized. Venous: The venous system is not well visualized. The inferior vena cava is not visualized. Contrast: Definity was used to optimize study. A total of 4 ml of diluted Definity was given IV. Summary: There was not any prior study for comparison. Conclusions The study is technically limited due to patient body habitus. Moderate concentric left ventricular hypertrophy is observed. There is normal left ventricular systolic function. The estimated ejection fraction is 55-60%. Abnormal left ventricular diastolic filling is observed, consistent with impaired relaxation. The left atrium is mildly dilated. The right ventricle is mild to moderately dilated. The right ventricle wall thickness is mildly increased. The right ventricular global systolic function is low normal. The right atrium is mildly dilated. The aortic valve leaflets are mildly thickened. There is trace to mild mitral regurgitation. There is trace tricuspid regurgitation. There is moderate dilatation of the ascending aorta. There is mild dilatation of the aortic root. Measurements Name Value Normal Range RVIDd (AP) 2D 3.5 cm (0.9 - 2.6) RVDdMajor (2D) 4.8 cm (2.2 - 4.4) RVAW (2D) 0.7 cm (0.2 - 0.5) RAd ISD 4CH 5.2 cm (3.4 - 4.9) RA (A4C)W 4.4 cm (2.9 - 4.6) IVSd (2D) 1.5 cm (0.6 - 1) LVPWd (2D) 1.3 cm (0.6 - 1) LVIDd (2D) 4.7 cm (3.6 - 5.4) LVIDs (2D) 3.2 cm - LV FS (2D) 32 % (25 - 45) Aortic Annulus 2 cm (1.4 - 2.6) Ao root diameter (2D) 3.7 cm (2.1 - 3.5) Ascending Ao 4.4 cm (2.1 - 3.4) LA dimension (AP) 2D 4.3 cm (2.3 - 3.8) LAd ISD 4CH 5.5 cm (2.9 - 5.3) LA ISD 4CH W 4.5 cm (2.5 - 4.5) Name Value Normal Range LA ESV BP (A/L) index 37.4 ml/m2 - Name Value Normal Range MV E-wave Vmax 1.2 m/sec - MV deceleration time 180 msec - MV A-wave Vmax 1.1 m/sec - MV E:A ratio 1.1 ratio - LV septal e' Vmax 0.08 m/sec - LV lateral e' Vmax 0.08 m/sec - LV E:e' septal ratio 15 ratio - LV E:e' lateral ratio 15 ratio - Name Value Normal Range AV Vmax 1.5 m/sec - AV VTI 34.8 cm - AV peak gradient 9 mmHg - AV mean gradient 5 mmHg - LVOT Vmax 1.1 m/sec - LVOT VTI 23.9 cm - LVOT peak gradient 5 mmHg - LVOT mean gradient 2 mmHg - Name Value Normal Range PV Vmax 0.79 m/sec -
[2018-05-17] MEDS: Enoxaparin(*) 40 MG/0.4 ML SYR SUBCUT SCH (17:10)
[2018-05-18] MEDS: oxyCODONE/Acetamin 5/325 MG* TAB PO PRN ×3 (01:08→23:20)
[2018-05-18] MEDS: Melatonin 3 MG TAB PO PRN (01:32)
[2018-05-18] MEDS: Mometasone/Formoter 200/5 MDI INH SCH ×2 (07:35→20:07)
[2018-05-18] MEDS: Mometasone 220 MCG MDI INH SCH ×2 (07:35→20:08)
[2018-05-18 08:55] LABS: Hematocrit 35 % (42-52); Hemoglobin 11.8 g/dl (14.0-18.0); Mean Corpuscular HGB Conc 33 g/dl (31-36); Mean Corpuscular Hemoglobin 30 pg (27-31); Mean Corpuscular Volume 91 fL (80-94); Platelet Count 202 10^3/ul (150-450); Red Blood Count 3.88 10^6/ul (4.00-5.40); Red Cell Distribution Width 15 % (10.5-15); White Blood Count 8.1 10^3/ul (3.5-10.8)
[2018-05-18] MEDS ORDERED: predniSONE TAB* 10 MG PO SCH (09:00)
[2018-05-18 09:28] LABS: BUN/Creatinine Ratio 31.9 (8-20); C Reactive Protein 1.63 mg/L (<8.01); Calcium 8.7 mg/dL (8.6-10.3); EGFR Non-African American 60.3 (>60); Potassium 4.4 mmol/L (3.5-5.0)
[2018-05-18 09:35] LABS: ABS Basophils 0 10^3/ul (0-0.2); ABS Eosinophils 0 10^3/ul (0-0.6); ABS Lymphocytes 1.9 10^3/ul (1.0-4.8); ABS Monocytes 0.7 10^3/ul (0-0.8); ABS Neutrophils 5.4 10^3/ul (1.5-7.7); ABS Nucleated RBC 0 10^3/ul; Eosinophil % 0.1 %; Lymphocyte % 23.7 %; Nucleated Red Blood Cells % 0.2
--- NOTE | 2018-05-18 09:38 | PN ---
Subjective Date of Service: 05/18/18 Interval History: Pt c/o severe thoracic back pain radiating to chest worse with movement and coughing that started approx 2 days into his bronchitis symptoms 5-7 days ago. It's painful for him to move and to raise his arms Family History: Findings - urnemarkable Social History: Findings - . 3 children. Son Mp Espinal is his SDM. Smoked 10 days ago. No alcohol abuse. Lives alone. 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 tonsillectomy Objective Active Medications: Albuterol (Ventolin Hfa Inhaler*) 1 puff INH Q6H PRN PRN Reason: COUGH Last Admin: 05/16/18 20:47 Dose: 1 puff Amlodipine Besylate (Norvasc Tab*) 10 mg PO DAILY [facility] Last Admin: 05/17/18 11:49 Dose: 10 mg Atorvastatin Calcium (Lipitor*) 10 mg PO DAILY [facility] Last Admin: 05/17/18 11:49 Dose: 10 mg Cefuroxime Axetil (Ceftin Tab(*)) 500 mg PO BID [facility] Last Admin: 05/17/18 20:39 Dose: 500 mg Docusate Sodium (Colace Cap*) 100 mg PO BID [facility] Last Admin: 05/17/18 20:39 Dose: Not Given Enoxaparin Sodium (Lovenox(*)) 40 mg SUBCUT Q24H [facility] Last Admin: 05/17/18 17:10 Dose: 40 mg Finasteride (Proscar Tab*) 5 mg PO DAILY [facility] Last Admin: 05/17/18 11:48 Dose: 5 mg Guaifenesin (Robitussin*) 5 ml PO Q6H PRN PRN Reason: COUGH/RIB PAIN Last Admin: 05/17/18 19:11 Dose: 5 ml Melatonin (Melatonin) 3 mg PO BEDTIME PRN PRN Reason: INSOMNIA Last Admin: 05/18/18 01:32 Dose: 3 mg Meloxicam (Mobic(Nf)) 7.5 mg PO BID [facility] Last Admin: 05/17/18 20:39 Dose: 7.5 mg Mometasone Furoate (Asmanex 220 Mcg Mdi *) 2 puff INH BID [facility] Last Admin: 05/18/18 07:35 Dose: 2 puff Mometasone Furoate/Formoterol Fumar (Dulera 200/5 Mdi*) 2 puff INH BID [facility] Last Admin: 05/18/18 07:35 Dose: 2 puff Nitroglycerin (Nitroglycerin Tab 0.4 Mg*) 0.4 mg SL Q5M PRN PRN Reason: ANGINA Last Admin: 05/17/18 02:14 Dose: 0.4 mg Oxycodone/Acetaminophen (Percocet 5/325 Tab*) 1 tab PO Q4H PRN PRN Reason: PAIN Last Admin: 05/18/18 05:53 Dose: 1 tab Prednisone (Deltasone Tab*) 30 mg PO DAILY [facility] Senna (Senokot Tab*) 2 tab PO BEDTIME PRN PRN Reason: CONSTIPATION Last Admin: 05/16/18 23:39 Dose: 2 tab Tamsulosin HCl (Flomax Cap*) 0.4 mg PO DAILY [facility] Last Admin: 05/17/18 11:49 Dose: 0.4 mg Vital Signs - 8 hr 05/18/18 05/18/18 05/18/18 02:52 02:55 05:53 Temperature 97.4 F Pulse Rate 60 Respiratory 18 18 18 Rate Blood Pressure 122/73 (mmHg) O2 Sat by Pulse 94 Oximetry 05/18/18 05/18/18 07:43 09:14 Temperature 97.8 F Pulse Rate 59 56 Respiratory 20 Rate Blood Pressure 147/95 128/72 (mmHg) O2 Sat by Pulse 99 Oximetry Oxygen Devices in Use Now: None Appearance: 73 yo M in nAD, AAOx3, obese, BMI 49 Eyes: No Scleral Icterus, PERRLA Ears/Nose/Mouth/Throat: NL Teeth, Lips, Gums, Mucous Membranes Moist Neck: NL Appearance and Movements; NL JVP Respiratory: Symmetrical Chest Expansion and Respiratory Effort, - - scattered mid lung wheezes Cardiovascular: NL Sounds; No Murmurs; No JVD, RRR Abdominal: NL Sounds; No Tenderness; No Distention, No Hepatosplenomegaly, - - back end developer in thoracic spine area approx T10-T12 Lymphatic: No Cervical Adenopathy Extremities: No Edema, No Clubbing, Cyanosis Skin: No Rash or Ulcers, No Nodules or Sclerosis Neurological: Alert and Oriented x 3, NL Muscle Strength and Tone Result Diagrams: 05/18/18 08:45 05/18/18 08:45 Assess/Plan/Problems-Billing Assessment: 73 yo M with h/o smoking, Asthma, obesity, HTN, kidney resection for ca 30 yrs ago, presents with thoracic, pleuritic back pain and bronchitis - Patient Problems (1) Acute bronchitis Comment: Started cefuroxime 05/16. Continue prednisone taper. Improving (2) Chest pain Comment: Pain is induced by cough or twisting his body, was reproduced by palpation of T spine Stress test Showed small area of reversible ischemia, questionable clinical significance. Oxycodone/APAP PRN pain. will get PT eval and thoracic spine CT, suspect compression fx (3) HTN (hypertension) Comment: Continue home dose amlodipine. controlled (4) H/O unilateral nephrectomy Comment: Needs outpt fup. creat mildly elevated at admission, now back to baseline (5) DVT prophylaxis Comment: lovenox Status and Disposition: Inpatient Pt will need further eval with CT to eval for compression fx and PT eval prior to d/c
[2018-05-18] MEDS: Atorvastatin* 10 MG TAB PO SCH (09:44)
[2018-05-18] MEDS: amLODIPine TAB* 5 MG PO SCH (09:44)
[2018-05-18] MEDS: Finasteride TAB* 5 MG PO SCH (09:45)
[2018-05-18] MEDS: CMCS: Meloxicam(NF) 7.5 MG TAB PO SCH ×2 (09:46→20:27)
[2018-05-18] MEDS: ceFUROXime TAB(*) 250 MG PO SCH ×2 (09:46→20:29)
[2018-05-18] MEDS: Docusate CAP* 100 MG PO SCH ×2 (09:46→20:27)
[2018-05-18] MEDS: Tamsulosin CAP* 0.4 MG PO SCH (09:47)
[2018-05-18] MEDS ORDERED: NS 0.9% 1000 ML* 1,000 ML IV SCH (12:00)
[2018-05-18] MEDS: Morphine VIAL* 4 MG/ML VIAL (1 ml vial) IV PRN ×2 (12:49→20:32)
[2018-05-18] MEDS ORDERED: ALPRAZolam TAB* 0.25 MG PO ONE (15:25)
[2018-05-18] MEDS ORDERED: Iodixanol* (CONTRAST) 320 MG/ML 100 ML SDV IV ONE (16:47)
[2018-05-18] MEDS ORDERED: Iodixanol* (CONTRAST) 320 MG/ML 100 ML SDV IV SCH (17:00)
[2018-05-18] MEDS: Enoxaparin(*) 40 MG/0.4 ML SYR SUBCUT SCH (18:21)
--- NOTE | 2018-05-18 19:51 | CONS ---
CONSULTATION NOTE: DATE OF CONSULT: 05/18/18 HISTORY OF PRESENT ILLNESS: The is a very pleasant 73-year-old gentleman with a remote history of renal cell carcinoma, status post nephrectomy, hypertension , dyslipidemia, asthma, COPD, who was admitted to the hospital with complaints of chest pain and possible pneumonia since 05/09/18. On further examination, the patient was found to have focal tenderness around the mid thoracic area, and a CT scan of the thoracic spine revealed a large lytic lesion in T8 with possible extension into the epidural space, and there were more lesions at T3 and T7. Requested to see the patient by Dr. Reis because of the CT scan image findings. The patient reports that he has been having pain for several days in his back and increased pain with coughing and difficulty with his ambulation due to the pain. The patient denies weakness, numbness, or tingling in his extremities. He ambulates at his baseline. He denies any urinary or GI complaints. 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 The patient is and he has 3 children. His son Mp is his surrogate. PAST MEDICAL HISTORY: As stated above, obesity, obstructive sleep apnea, hypertension, asthma, renal cell carcinoma. PAST SURGICAL HISTORY: Status post nephrectomy. MEDICATIONS: The patient was on codeine, finasteride, Meloxicam, naproxen, simvastatin, sulfamethoxazole, trimethoprim, tamsulosin, amlodipine, prednisone at home. ALLERGIES: No known drug allergies. FAMILY HISTORY: Lung cancer. SOCIAL HISTORY: Tobacco, positive; he quit a few days ago. Alcohol, occasionally. Recreational drug use, positive for marijuana. PHYSICAL EXAM: The patient is not in acute distress. He is awake, alert, and oriented x3. His pupils are equal and reactive. Cranial nerves II through XII are grossly intact. Motor 4-5/5 in all extremities. Sensory is grossly intact to light touch. Deep tendon reflexes are +1 bilaterally. No clonus. No Babinski. Marquez's negative. Straight-leg raise negative in the sitting position. The patient does not have tenderness to palpitation in the cervical and lumbar spine, but he does have mild tenderness in the mid thoracic spine. He has full range of motion of the cervical spine. Position sensation is intact. DIAGNOSTIC STUDIES: The patient had a CT scan of the thoracic spine revealing a large lytic lesion at almost the right half of the T8 vertebral body with possible extension into the anterior canal. There is also a second lesion on the left vertebral body of T7 and left vertebral body of T3. Overall, the alignment of his thoracic spine is maintained. ASSESSMENT: The patient is a very pleasant 73-year-old gentleman with complaints of back pain, coughing, and chest pain with physical findings consistent with a T8 lytic lesion. PLAN: The patient at this point has evidence of possible metastatic disease with multifocal lesions in his thoracic spine. We will recommend further imaging of the cervical and the lumbar spine as well as imaging with MRI of the whole axis and plain x-rays of his thoracic spine. The patient also will have metastatic workup and studies for possible multiple myeloma. We will discuss with Dr. Louis from the oncology standpoint. His SINS score is 7. There is a strong concern for possibility of instability and we will recommend bedrest at this point and the use of TLSO brace. We discussed several treatment options with the patient including stabilization of his thoracic spine and separation surgery versus a more definite intervention including preoperative embolization of the tumor and tumor resection verus possible corpectomy and posterior stabilization as well as different treatment options including radiation and/or chemotherapy will be discussed with Dr. Louis. Also discussed the possibility to transfer to a larger center especially if the patient will need and would be willing to undergo a more extensive surgical treatment as corpectomy. Thank you very much for allowing us to participate in the care of this patient. Please do not hesitate to contact our office in case you have any further questions or concerns regarding the care of this patient. [id number]/[facility] #: [id number] BRODY
--- NOTE | 2018-05-18 21:37 | CONS ---
MEDICAL ONCOLOGY CONSULTATION NOTE: DATE OF CONSULTATION: 05/18/18. REASON FOR CONSULTATION: Lytic bone lesion in the L5 vertebra. HISTORY OF PRESENT ILLNESS: Mr. Espinal is a 73-year-old male, who reports that he has had pain in t he back and also in the chest on lifting objects. This pain is worse with coughing, associated with bringing up some yellow sputum. The pain has been getting worse recently. In the most recent days, he feels as though the pain is more in the back than in the front, has a hard time localizing where t he pain is coming from. He reports having been seen at [facility], receiving antibiotics, also having been seen at [facility] with a question of flu and COPD. He was seen in the emerge ncy room several days prior to this admission, given inhaler and sent home with some mild improvement . He returned to the hospital on 05/16/18. At that time, he rated his pain as a 9/10, reported the pain was in the chest and in the mid upper back. He denied any associated nausea or vomiting, denied any significant shortness of breath, diaphoresis, dizziness or lightheadedness. At the time of admi ssion, he was on prednisone and Bactrim in an attempt to try to treat this as a respiratory issue. H e had a negative cardiac workup and because of the ongoing pain, a CT scan of the spine was ordered a nd results available this morning. This reveals a very large lesion involving the T8 vertebral body with epidural extension. It involved about approximately half of the T8 vertebra on the right side o f the vertebral body. Maximum size of 3.6 cm. Smaller lesions are also noted at T7 and T3. PAST MEDICAL HISTORY: 1. 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 It was a Eve grade 1/4. Adrenal gland was resected and benign. The patient subsequently on C T scan in 2008 performed at the time for a kidney stone and then repeated revealed a 1.8-cm exophytic lesion arising from the mid pole of the left kidney. Because of this, the patient had underwent a p artial nephrectomy on the left with Dr. Alcantar, previously of Urology at [facility] in 2008. The patient has had frequent renal stones and has had both lithotripsy as well as ureteroscopy and stent s. 2. History of hypertension. 3. History of hypercholesterolemia. 4. BPH. 5. Insomnia. No MD, CVA or diabetes mellitus. 6. Arthritis. FAMILY HISTORY: Noncontributory. No known cancers. SOCIAL HISTORY: The patient lives alone. He raised 3 children on his own, when his childre n at a young age. 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 All 3 of his children live in [facility], although they grew up here. Cigarettes stopped 2 weeks ago, smoked 1 to 2 packs per day from his 20s until age 73, alcohol rare, although heavy as an young man. Occasional marijuana. REVIEW OF SYSTEMS: Arthritis in the hands. No significant arthritis in the lower back, pelvis or hi ps. Weight has been increased approximately 50 pounds over the past 5 to 10 years. No significant c urrent urinary tract symptoms. Has nocturia x1. Bowels are without significant problems. Has occas ional diarrhea, also had a colonoscopy performed earlier this year without significant abnormalities noted. Benign polyp on 10/18/17. Denies any nausea, vomiting or significant change in bowel habits other than occasional diarrhea. De nies any significant heartburn or reflux. Does report some mild dizziness at times. Review of [facility] is otherwise negative. PHYSICAL EXAM: A 73-year-old male in no acute distress. Vital Signs: Blood pressure 127/74, pulse 67, temperature 97.6, O2 saturation 95% on room air. HEENT: PERRL. EOMI. No erythema or exudates. No palpable cervical, supraclavicular or axillary adenopathy. Lungs: Clear. Heart: Regular rate and rhythm without murmurs, rubs or gallops. Abdomen: Soft, nontender without masses or organomegal y. Extremities: No clubbing, cyanosis or edema. Back: Mild tenderness over the midthoracic spine at approximately T9 or T10 level. Neurologic Exam: Motor is 5/5 throughout. Sensation is intact to pinprick and light touch. DIAGNOSTIC STUDIES/LAB DATA: CBC with a white count of 8100, hematocrit 35, hemoglobin of 11.8. Angella telet count 202,000. Differential is normal by machine. Chemistry studies: Sodium 137, potassium 4. 4, chloride 104, bicarb 27, BUN 38, creatinine 1.19, and similar to that of March, although no rosalind ier values are currently available, glucose 103. LFTs are normal. Review of the imaging studies reveals not just the large lesion at T8 but reveals smaller lesions at T7 and T3. IMPRESSION AND PLAN: A 73-year-old male with large lytic bone lesion at T7 and smaller lesions elsew here in the thoracic spine. He has a history of previous renal cell carcinomas bilaterally, large le bo removed in 1997, and subsequent small lesion with partial nephrectomy contralaterally in 2008. It is certainly possible that he has metastatic disease from one of these previous renal cell carcino mas. It is also possible that his lytic lesions are from other metastatic disease with unknown prima ry to this point or from multiple myeloma. The patient should have a CT scan of the chest, abdomen, and pelvis looking for other potential lytic lesions as well as looking for potential sites of primar y carcinoma, specifically looking at the lung in light of his smoking history. In addition, this amelia l give a good look at the right renal bed and at the left kidney to make sure that there are no new r enal cell carcinomas or local recurrences. It is certainly possible this could represent multiple my eloma. He does not have hypercalcemia, anemia or renal disease at this point, but laboratory studies are being obtained to include serum protein electrophoresis, free light chains, and a beta-2 microgl obulin. MRI scan of the spine to better characterize the extent of involvement at the T7 level will also be obtained. Once a CT scan, MRI scan, and laboratory studies are available, further recommenda tions will follow. He will certainly require either biopsy of an area of lytic disease or bone marro w biopsy or biopsy of other site if other lesions are noted. If this turns out either to be multiple myeloma or if this turns out to be metastatic renal cell carc inoma in either case, he would have a life expectancy in excess of 1 year. This was discussed with Eduardo kelleysurgerkofi following neurosurgical evaluation by Dr. Lara just prior to my seeing the patient. Therefore, because of this prognosis, I feel that we should be relatively aggressive in terms of st abilizing this area of the spine as long as it turns out to be either myeloma or metastatic renal earlene l. [id number]/[facility] #: [id number]
[2018-05-18] MEDS: Temazepam CAP* 15 MG PO PRN (23:20)
[2018-05-19] MEDS: Morphine VIAL* 4 MG/ML VIAL (1 ml vial) IV PRN ×4 (02:29→22:28)
[2018-05-19] MEDS: oxyCODONE/Acetamin 5/325 MG* TAB PO PRN ×2 (05:50→20:17)
[2018-05-19] MEDS: Mometasone/Formoter 200/5 MDI INH SCH ×2 (07:12→19:27)
[2018-05-19] MEDS: Mometasone 220 MCG MDI INH SCH ×2 (07:12→19:27)
--- NOTE | 2018-05-19 08:50 | PN ---
Subjective Date of Service: 05/19/18 Interval History: Pt is coughing up mostly clear sputum. still c/o severe thoracic back pain with cough. On bedrest since dx of lytic lesion on T spine. Dx explained to pt. Pt is aware that most likely he has cancer and that MRI will be obtained tomorrow Family History: Findings - urnemarkable Social History: Findings - . 3 children. Son Mp Espinal is his SDM. Smoked 10 days ago. No alcohol abuse. Lives alone. 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 tonsillectomy Objective Active Medications: Albuterol (Ventolin Hfa Inhaler*) 1 puff INH Q6H PRN PRN Reason: COUGH Last Admin: 05/16/18 20:47 Dose: 1 puff Amlodipine Besylate (Norvasc Tab*) 10 mg PO DAILY [facility] Last Admin: 05/18/18 09:44 Dose: 10 mg Atorvastatin Calcium (Lipitor*) 10 mg PO DAILY [facility] Last Admin: 05/18/18 09:44 Dose: 10 mg Cefuroxime Axetil (Ceftin Tab(*)) 500 mg PO BID [facility] Last Admin: 05/18/18 20:29 Dose: 500 mg Docusate Sodium (Colace Cap*) 100 mg PO BID [facility] Last Admin: 05/18/18 20:27 Dose: 100 mg Enoxaparin Sodium (Lovenox(*)) 40 mg SUBCUT Q24H [facility] Last Admin: 05/18/18 18:21 Dose: 40 mg Finasteride (Proscar Tab*) 5 mg PO DAILY [facility] Last Admin: 05/18/18 09:45 Dose: 5 mg Guaifenesin (Robitussin*) 5 ml PO Q6H PRN PRN Reason: COUGH/RIB PAIN Last Admin: 05/17/18 19:11 Dose: 5 ml Iodixanol (Visipaque* 320 (Contrast)) 150 ml IV ONCE [facility] Stop: 05/20/18 16:46 Melatonin (Melatonin) 3 mg PO BEDTIME PRN PRN Reason: INSOMNIA Last Admin: 05/18/18 01:32 Dose: 3 mg Meloxicam (Mobic(Nf)) 7.5 mg PO BID [facility] Last Admin: 05/18/18 20:27 Dose: 7.5 mg Mometasone Furoate (Asmanex 220 Mcg Mdi *) 2 puff INH BID [facility] Last Admin: 05/19/18 07:12 Dose: 2 puff Mometasone Furoate/Formoterol Fumar (Dulera 200/5 Mdi*) 2 puff INH BID [facility] Last Admin: 05/19/18 07:12 Dose: 2 puff Morphine Sulfate (Morphine Vial*) 2 mg IV Q4H PRN PRN Reason: PAIN Last Admin: 05/19/18 02:29 Dose: 2 mg Nitroglycerin (Nitroglycerin Tab 0.4 Mg*) 0.4 mg SL Q5M PRN PRN Reason: ANGINA Last Admin: 05/17/18 02:14 Dose: 0.4 mg Oxycodone/Acetaminophen (Percocet 5/325 Tab*) 1 tab PO Q4H PRN PRN Reason: PAIN Last Admin: 05/19/18 05:50 Dose: 1 tab Prednisone (Deltasone Tab*) 20 mg PO DAILY [facility] Senna (Senokot Tab*) 2 tab PO BEDTIME PRN PRN Reason: CONSTIPATION Last Admin: 05/16/18 23:39 Dose: 2 tab Tamsulosin HCl (Flomax Cap*) 0.4 mg PO DAILY [facility] Last Admin: 05/18/18 09:47 Dose: 0.4 mg Temazepam (Restoril Cap*) 15 mg PO BEDTIME PRN PRN Reason: INSOMNIA Last Admin: 05/18/18 23:20 Dose: 15 mg Vital Signs - 8 hr 05/19/18 05/19/18 05/19/18 02:29 02:32 03:14 Temperature Pulse Rate Respiratory 18 16 16 Rate Blood Pressure (mmHg) O2 Sat by Pulse Oximetry 05/19/18 05/19/18 05/19/18 03:16 05:50 07:13 Temperature 97.4 F Pulse Rate 63 74 Respiratory 20 16 14 Rate Blood Pressure 137/82 (mmHg) O2 Sat by Pulse 100 95 Oximetry Oxygen Devices in Use Now: None Appearance: 73 yo M in NAD, AAOx3 Eyes: No Scleral Icterus, PERRLA Ears/Nose/Mouth/Throat: NL Teeth, Lips, Gums, Mucous Membranes Moist Neck: NL Appearance and Movements; NL JVP, Trachea Midline Respiratory: Symmetrical Chest Expansion and Respiratory Effort, - - mild rhonchi at LLL Cardiovascular: NL Sounds; No Murmurs; No JVD, RRR Abdominal: NL Sounds; No Tenderness; No Distention, - - T8-10 tender to palpation on back Lymphatic: No Cervical Adenopathy Extremities: No Edema Skin: No Rash or Ulcers, No Nodules or Sclerosis Neurological: Alert and Oriented x 3, NL Muscle Strength and Tone Result Diagrams: 05/18/18 08:45 05/18/18 08:45 Assess/Plan/Problems-Billing Assessment: 73 yo M with h/o smoking, Asthma, obesity, HTN, kidney resection for ca 30 yrs ago, presents with thoracic, pleuritic back pain and bronchitis - Patient Problems (1) Lytic bone lesions on xray Comment: CT showed T8 lytic lesion with 2 more small areas on T spine and one larger one on iliac bone. Pt is aware of likely malignancy. So far no other lestions noted on CT chest/abd/pelvis on 05/18/18 appreciate neurosurgery and oncology consults Cont bed rest till TLSO brace is in place. MRI spine tomorrow Myeloma work up pending (2) Acute bronchitis Comment: Started cefuroxime 05/16. Continue prednisone taper. Improving slowsly, mostly due to inability to cough up sputum due to severe back pain. will start flutter valve (3) Chest pain Comment: Radiating from back pain Stress test Showed small area of reversible ischemia, questionable clinical significance. (4) HTN (hypertension) Comment: Continue home dose amlodipine. controlled (5) H/O unilateral nephrectomy Comment: Needs outpt fup. creat mildly elevated at admission, now back to baseline (6) DVT prophylaxis Comment: lovenox Status and Disposition: Inpatient
[2018-05-19] MEDS: Atorvastatin* 10 MG TAB PO SCH (10:32)
[2018-05-19] MEDS: CMCS: Meloxicam(NF) 7.5 MG TAB PO SCH ×2 (10:32→20:18)
[2018-05-19] MEDS: amLODIPine TAB* 5 MG PO SCH (10:32)
[2018-05-19] MEDS: Finasteride TAB* 5 MG PO SCH (10:33)
[2018-05-19] MEDS: ALPRAZolam TAB* 0.25 MG PO PRN ×2 (10:33→20:19)
[2018-05-19] MEDS: Tamsulosin CAP* 0.4 MG PO SCH (10:33)
[2018-05-19] MEDS: Docusate CAP* 100 MG PO SCH ×2 (10:33→20:19)
[2018-05-19] MEDS: predniSONE TAB* 20 MG PO SCH (10:33)
[2018-05-19] MEDS: Senna TAB PO PRN (10:41)
[2018-05-19] MEDS: ceFUROXime TAB(*) 250 MG PO SCH ×2 (11:21→20:18)
--- NOTE | 2018-05-19 14:32 | PN ---
Progress Note - Progress Note Date of Service: 05/19/18 SOAP: Subjective: []No events ON. Tolerates po well. Back pain improved. On bed rest. Objective: [] VSS AAOx3 MARA, CN II-XII grossly intact Motor 5/5 all extremities Sensory grossly intact to light touch Assessment: [] 73 yo m T8, T7, T3 lesions, hx of renal Ca. Plan: []Monitor VS, Neurochecks MRI pending. Discussed with patient in extend regarding treatment options including separation surgery and stabilization vs corpectomy and stabilization. Discussed the possibility of transfer to larger center for preoperative embolization if needed. Patient understood and would like to be transferred to a larger center. Dr Guan in [facility] has accepted the patient. Greatly appreciate IM/Oncology care. Bradley Lara MD
[2018-05-19] MEDS: Enoxaparin(*) 40 MG/0.4 ML SYR SUBCUT SCH (16:59)
[2018-05-20] MEDS: Morphine VIAL* 4 MG/ML VIAL (1 ml vial) IV PRN ×3 (03:47→20:09)
[2018-05-20] MEDS: ALPRAZolam TAB* 0.25 MG PO PRN ×2 (04:57→20:14)
[2018-05-20 07:02] LABS: ABS Basophils 0 10^3/ul (0-0.2); ABS Eosinophils 0 10^3/ul (0-0.6); ABS Lymphocytes 1.5 10^3/ul (1.0-4.8); ABS Monocytes 0.5 10^3/ul (0-0.8); ABS Neutrophils 6.1 10^3/ul (1.5-7.7); ABS Nucleated RBC 0 10^3/ul; Eosinophil % 0.6 %; Hematocrit 33 % (42-52); Mean Corpuscular HGB Conc 33 g/dl (31-36); Mean Corpuscular Hemoglobin 30 pg (27-31); Mean Corpuscular Volume 91 fL (80-94); Mean Platelet Volume 8.2 fL (7.4-10.4); Nucleated Red Blood Cells % 0; Platelet Count 162 10^3/ul (150-450); Red Blood Count 3.66 10^6/ul (4.00-5.40); Red Cell Distribution Width 14 % (10.5-15); White Blood Count 8.1 10^3/ul (3.5-10.8)
[2018-05-20 07:21] LABS: BUN/Creatinine Ratio 27.6 (8-20); Calcium 8.5 mg/dL (8.6-10.3); EGFR Non-African American 69.6 (>60); Potassium 4.8 mmol/L (3.5-5.0)
[2018-05-20] MEDS: Mometasone/Formoter 200/5 MDI INH SCH ×2 (08:07→19:56)
[2018-05-20] MEDS: Mometasone 220 MCG MDI INH SCH (08:12)
[2018-05-20] MEDS: ceFUROXime TAB(*) 250 MG PO SCH ×2 (10:25→20:13)
[2018-05-20] MEDS: CMCS: Meloxicam(NF) 7.5 MG TAB PO SCH ×2 (10:25→20:14)
[2018-05-20] MEDS: Atorvastatin* 10 MG TAB PO SCH (10:25)
[2018-05-20] MEDS: Docusate CAP* 100 MG PO SCH ×2 (10:25→20:15)
[2018-05-20] MEDS: Tamsulosin CAP* 0.4 MG PO SCH (10:25)
[2018-05-20] MEDS: predniSONE TAB* 20 MG PO SCH (10:26)
[2018-05-20] MEDS: Finasteride TAB* 5 MG PO SCH (10:26)
[2018-05-20] MEDS: amLODIPine TAB* 5 MG PO SCH (10:26)
--- NOTE | 2018-05-20 13:14 | PN ---
Subjective Date of Service: 05/20/18 Interval History: Pt feels well, breathing well, cough resolving. Back still hurts with movement Family History: Findings - urnemarkable Social History: Findings - . 3 children. Son Mp Espinal is his SDM. Smoked 10 days ago. No alcohol abuse. Lives alone. 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 tonsillectomy Objective Active Medications: Albuterol (Ventolin Hfa Inhaler*) 1 puff INH Q6H PRN PRN Reason: COUGH Last Admin: 05/16/18 20:47 Dose: 1 puff Alprazolam (Xanax Tab*) 0.25 mg PO Q8H PRN PRN Reason: ANXIETY Last Admin: 05/20/18 04:57 Dose: 0.25 mg Amlodipine Besylate (Norvasc Tab*) 10 mg PO DAILY [facility] Last Admin: 05/20/18 10:26 Dose: 10 mg Atorvastatin Calcium (Lipitor*) 10 mg PO DAILY [facility] Last Admin: 05/20/18 10:25 Dose: 10 mg Cefuroxime Axetil (Ceftin Tab(*)) 500 mg PO BID [facility] Last Admin: 05/20/18 10:25 Dose: 500 mg Docusate Sodium (Colace Cap*) 100 mg PO BID [facility] Last Admin: 05/20/18 10:25 Dose: 100 mg Enoxaparin Sodium (Lovenox(*)) 40 mg SUBCUT Q24H [facility] Last Admin: 05/19/18 16:59 Dose: 40 mg Finasteride (Proscar Tab*) 5 mg PO DAILY [facility] Last Admin: 05/20/18 10:26 Dose: 5 mg Guaifenesin (Robitussin*) 5 ml PO Q6H PRN PRN Reason: COUGH/RIB PAIN Last Admin: 05/17/18 19:11 Dose: 5 ml Iodixanol (Visipaque* 320 (Contrast)) 150 ml IV ONCE [facility] Stop: 05/20/18 16:46 Melatonin (Melatonin) 3 mg PO BEDTIME PRN PRN Reason: INSOMNIA Last Admin: 05/18/18 01:32 Dose: 3 mg Meloxicam (Mobic(Nf)) 7.5 mg PO BID [facility] Last Admin: 05/20/18 10:25 Dose: 7.5 mg Mometasone Furoate/Formoterol Fumar (Dulera 200/5 Mdi*) 2 puff INH BID [facility] Last Admin: 05/20/18 08:07 Dose: 2 puff Morphine Sulfate (Morphine Vial*) 2 mg IV Q4H PRN PRN Reason: PAIN Last Admin: 05/20/18 11:08 Dose: 2 mg Nitroglycerin (Nitroglycerin Tab 0.4 Mg*) 0.4 mg SL Q5M PRN PRN Reason: ANGINA Last Admin: 05/17/18 02:14 Dose: 0.4 mg Oxycodone/Acetaminophen (Percocet 5/325 Tab*) 1 tab PO Q4H PRN PRN Reason: PAIN Last Admin: 05/19/18 20:17 Dose: 1 tab Prednisone (Deltasone Tab*) 20 mg PO DAILY [facility] Last Admin: 05/20/18 10:26 Dose: 20 mg Senna (Senokot Tab*) 2 tab PO BEDTIME PRN PRN Reason: CONSTIPATION Last Admin: 05/19/18 10:41 Dose: 2 tab Tamsulosin HCl (Flomax Cap*) 0.4 mg PO DAILY [facility] Last Admin: 05/20/18 10:25 Dose: 0.4 mg Temazepam (Restoril Cap*) 15 mg PO BEDTIME PRN PRN Reason: INSOMNIA Last Admin: 05/18/18 23:20 Dose: 15 mg Vital Signs - 8 hr 05/20/18 05/20/18 05/20/18 07:00 07:23 08:13 Temperature 98.0 F Pulse Rate 63 77 Respiratory 16 18 16 Rate Blood Pressure 137/68 (mmHg) O2 Sat by Pulse 96 93 Oximetry 05/20/18 11:08 Temperature Pulse Rate Respiratory 17 Rate Blood Pressure (mmHg) O2 Sat by Pulse Oximetry Oxygen Devices in Use Now: None Appearance: 73 yo M in nAD, aAOx3 Eyes: No Scleral Icterus, PERRLA Ears/Nose/Mouth/Throat: NL Teeth, Lips, Gums, Mucous Membranes Moist Neck: NL Appearance and Movements; NL JVP, Trachea Midline Respiratory: Symmetrical Chest Expansion and Respiratory Effort, Clear to Auscultation Cardiovascular: NL Sounds; No Murmurs; No JVD, RRR Abdominal: NL Sounds; No Tenderness; No Distention Lymphatic: No Cervical Adenopathy Extremities: No Edema, No Clubbing, Cyanosis Skin: No Rash or Ulcers, No Nodules or Sclerosis Neurological: Alert and Oriented x 3, NL Muscle Strength and Tone Result Diagrams: 05/20/18 06:34 05/20/18 06:34 Assess/Plan/Problems-Billing Assessment: 73 yo M with h/o smoking, Asthma, obesity, HTN, kidney resection for ca 30 yrs ago, presents with thoracic, pleuritic back pain and bronchitis - Patient Problems (1) Lytic bone lesions on xray Comment: CT showed T8 lytic lesion with 2 more small areas on T spine and one larger one on iliac bone. Pt is aware of likely malignancy. So far no other lestions noted on CT chest/abd/pelvis on 05/18/18 appreciate neurosurgery and oncology consults. Neurosurgery recommended transfer to [place] for T spine stabilization surgery that [place] [facility] Pt is aware that is [facility] has a bed and he'd choose to to go to [place] he may need to pay the difference of ambulance transfer Cont bed rest till TLSO brace is in place. MRI spine today in [place] Myeloma work up pending (2) Acute bronchitis Comment: Started cefuroxime 05/16. Continue prednisone taper. Improving , will wean prednisone to off today (3) Chest pain Comment: Radiating from back pain Stress test Showed small area of reversible ischemia, questionable clinical significance. (4) HTN (hypertension) Comment: Continue home dose amlodipine. controlled (5) H/O unilateral nephrectomy Comment: Needs outpt fup. creat mildly elevated at admission, now back to baseline (6) DVT prophylaxis Comment: lovenox Status and Disposition: Inpatient
[2018-05-20] MEDS: Enoxaparin(*) 40 MG/0.4 ML SYR SUBCUT SCH (17:15)
[2018-05-20] MEDS: oxyCODONE/Acetamin 5/325 MG* TAB PO PRN ×2 (17:54→22:50)
--- NOTE | 2018-05-20 18:10 | PN ---
Progress Note - Progress Note Date of Service: 05/20/18 SOAP: Subjective: []No events ON. Tolerates po well. Back pain improved. OOB with a brace. Objective: []VSS AAOx3 MARA, CN II-XII grossly intact Motor 5/5 all extremities Sensory grossly intact to light touch Assessment: []73 yo m T8, T7, T3 lesions, hx of renal Ca. Plan: [] Monitor VS, Neurochecks MRI pending. Awaiting tranfer [facility] Greatly appreciate IM/Oncology care. Bradley Lara MD
[2018-05-20] MEDS ORDERED: Gadoteridol* (CONTRAST) 279.3 MG/ML 10 ML IV ONE (21:53)
[2018-05-20] MEDS: Melatonin 3 MG TAB PO PRN ×2 (22:50→22:51)
--- NOTE | 2018-05-20 23:41 | TRS ---
ADDENDUM IS NOW INCLUDED ON THIS REPORT CC: Dr. Lara; Dr. Quigley; Dr. Louis; Dr. Guan, [facility] Neurosurgical Service * CC: Fax to [facility], Unit [id number] TRANSFER SUMMARY: DATE OF ADMISSION: To [facility], 05/16/18. DATE OF ANTICIPATED TRANSFER: 05/20/18 PRIMARY CARE PROVIDER: Dr. Quigley. REASON FOR TRANSFER: 1. Stabilization of the thoracic spine due to a newly diagnosed lesion of the vertebral body of T8 causing instability. Please note that the patient also was noted to have a couple other small lesions in his vertebral spine as well as iliac crest. 2. The patient had been evaluated and treated for spastic bronchitis with steroids and cefuroxime during the hospital stay. SECONDARY DIAGNOSES: 1. Obesity with BMI of above 49. 2. History of status post right-sided nephrectomy for renal cell carcinoma in 1997 and recurrence of cancer in the left kidney in 2008, status post partial nephrectomy on that side in 2008. 3. History of hypertension. 4. Hyperlipidemia. 5. Benign prostatic hypertrophy. 6. Insomnia. 7. Arthritis. MEDICATIONS AT THE TIME OF TRANSFER: Included: 1. Xanax 0.25 mg q.8 hours p.r.n. 2. Albuterol inhaler 1 inhalation every 6 hours p.r.n. 3. Lipitor 10 mg daily. 4. Cefuroxime 500 mg b.i.d. 5. Colace 100 mg b.i.d. 6. Lovenox 40 mg subcutaneously every 24 hours. 7. Proscar 5 mg daily. 8. Guaifenesin 5 mL every 6 hours p.r.n. 9. Melatonin 3 mg at bedtime p.r.n. 10. Mobic 7.5 mg b.i.d. 11. Dulera 200/5 one to two inhalations b.i.d. 12. Morphine 2 mg IV every 4 hours p.r.n. 13. Nitroglycerin sublingually on a p.r.n. basis. 14. Oxycodone with acetaminophen 1 tablet every 4 hours p.r.n. 15. Senna 2 tablets at bedtime p.r.n. 16. Flomax 0.4 mg daily. 17. Restoril 15 mg at bedtime. LABORATORY DATA AND STUDIES PERFORMED DURING THE HOSPITAL STAY: Included on ; white blood cell count of 8.1, hemoglobin of 11.0, hematocrit of 33, and platelets of 162. Sodium was 139, potassium 4.8, chloride 112, carbon dioxide 30, BUN 29, creatinine 1.05. Troponins were 0 to 0.01 throughout the hospital stay. TSH of 2.19 at admission. C-reactive protein of 1.6 on 05/18/18. Transthoracic echocardiogram obtained on 05/16/18, which showed limited study due to body habitus with EF of 55% to 60% with an abnormal left ventricular diastolic filling observed consistent with impaired relaxation. There was trace -to-moderate mitral regurgitation, trace tricuspid regurgitation, moderate dilatation of the ascending aorta. Cardiac stress test documented on 05/17/18. Impression: "Low risk". There were findings suggestive of small area of ischemia at the cardiac apex. Nevertheless, the patient's EF was noted to be 57% and there was slight hypokinesis of the septum noted. Thoracic spine CT obtained on 05/18/18. Impression: "Expansile osteolytic lesion of the T8 vertebral body with minimal epidural extension and cortical disruption. There were smaller lesions at T7 and T3. The appearance is most consistent with a neoplasm. The differential includes metastatic disease as well as myeloma. Given history of renal malignancy, metastatic disease is favored. Degenerative disk disease. Small bilateral pleural effusions". CT of the chest, abdomen and pelvis obtained on 05/18/18. Impression: "As noted on the CT of the thoracic spine, there are multiple osteolytic lesions of the thoracic spine, the largest at T8. Additionally, there is an expansile osteolytic lesion of the left ilium, posteriorly at the SI joint. The differential includes multiple myeloma and metastatic disease. Small bilateral pleural effusions. A 3.5- cm infrarenal abdominal aortic aneurysm. Fatty infiltration of the liver. Diverticulosis. Enlarged prostate". Currently pending at the time of dictation is the MRI of the cervical, thoracic , and lumbar spine. Laboratory data that is currently pending includes beta-2 microglobulin levels, kappa and lambda free light chains level, as well as serum protein electrophoresis. CONSULTATIONS DURING THE HOSPITAL STAY: Included Dr. Louis from Oncology, Dr. Lara from Neurosurgery. HOSPITALIZATION COURSE: Eric Espinal is a 73-year-old male with history of obesity, who presented to the hospital initially on 05/14/18 complaining of difficulty breathing. He was prescribed antibiotics and steroids for spastic bronchitis. He came back to the hospital on 05/16/18 complaining of worsening of symptoms. In addition to that, the patient had been complaining of cough and chest pain with cough. At that point, he was admitted. He was placed on steroids and cefuroxime. He was given Percocet for pain. Initially, he was ruled out for cardiac reasons of his chest pain with cardiac stress test, which showed only small apical area of ischemia with doubtful clinical significance, especially that the patient's troponins were negative and his pain was pleuritic. Subsequently, the patient noted that his pain in the chest is actually radiating from severe pain in the back that is worse with movement. The patient was noted to have point tenderness over the lower part of his thoracic spine and CT of the thoracic spine was obtained with suspicion that the patient is likely having compression fracture of the area. Unfortunately, for the patient, it showed large lesion in the T8 vertebral body. At that point , Dr. Lara saw the patient from neurosurgical evaluation. It was noted that the patient has a couple of smaller lesions in the thoracic spine and iliac bone. Dr. Louis also saw the patient from Oncology. Initial workup for multiple myeloma was initiated. Although the patient has history of remote renal cell carcinoma status post right-sided nephrectomy and partial left nephrectomy, there was no evidence of organ involvement apart from the bone involvement as above mentioned. Furthermore, when Dr. Lara saw the patient, it was noted by the neurosurgical team that the patient may require an endovascular embolization during the procedure of stabilization of his spine and that he may need a separation surgery and stabilization versus corpectomy and stabilization. It was suggested for the patient to be transferred to a tertiary care center for those procedures since the neurosurgical service here would not be able to perform all of them in combination with possibility of endovascular approach. At that point, [facility] was contacted and unfortunately they did not have beds available. [facility] was contacted and we have an accepting physician and currently that hospital is looking for a bed acceptance of this patient. The patient is aware of transfer to [facility] for further diagnosis and treatment. Please note that since the patient's diagnosis of thoracic spine mass, the patient had been on bedrest as per recommendation of Dr. Lara due to possibility of unstable lesion of the T8 spine. We are waiting for TLSO brace to be obtained for the patient, which has not been received yet. For physical exam at the time of the transfer, please see daily progress notes. Please note that this is a short summary of the patient's hospitalization. Please refer to further medical records for details. TIME SPENT: Approximately 50 minutes was spent on the patient's dictation. TRANSFER SUMMARY ADDENDUM: Please note that patient stayed in the hospital over the course of 05/21/18 and was transferred for an available bed at [facility] on 05/22/18 in the morning. During the remaining part of his stay at [facility], he had an MRI of his spine obtained which showed metastatic tumor at T3 with compression fracture at T8 vertebral body, the spinous process of T4, and tumor involving T5, T6, and T7. The patient also was noted to have tumor involving the right side of the T9 vertebral body as well as the body of S1 extending into the right pedicle. There was also extensive bulky tumor in the posterior aspect of the left iliac bone that involved adjacent soft tissues and metastatic tumor in the contralateral right iliac bone. It was also noted to have an intrarenal abdominal aortic aneurysm measuring 3.5 cm. Clinically, the patient had been unchanged. His hemodynamics had been stable. He tried to wear his TLSO brace, but had a significant amount of pain in the thoracic spine when trying to ambulate with it. He is being transferred to [facility] in the morning of 05/12/18. For further details of the patient's hospitalization, please see remaining medical records in the computerized system. [id number]/[facility] #: [id number] Maria- [id number]/[facility] #: [id number] BRODY
[2018-05-21] MEDS: ALPRAZolam TAB* 0.25 MG PO PRN ×2 (03:54→23:43)
[2018-05-21] MEDS: Morphine VIAL* 4 MG/ML VIAL (1 ml vial) IV PRN ×5 (03:54→23:43)
[2018-05-21] MEDS: Mometasone/Formoter 200/5 MDI INH SCH ×2 (07:58→19:59)
[2018-05-21] MEDS: ceFUROXime TAB(*) 250 MG PO SCH ×2 (08:06→20:08)
[2018-05-21] MEDS: CMCS: Meloxicam(NF) 7.5 MG TAB PO SCH ×2 (08:06→20:09)
[2018-05-21] MEDS: Docusate CAP* 100 MG PO SCH ×2 (08:07→20:09)
[2018-05-21] MEDS: Atorvastatin* 10 MG TAB PO SCH (08:07)
[2018-05-21] MEDS: Finasteride TAB* 5 MG PO SCH (08:07)
[2018-05-21] MEDS: amLODIPine TAB* 5 MG PO SCH (08:07)
[2018-05-21] MEDS: Tamsulosin CAP* 0.4 MG PO SCH (08:07)
--- NOTE | 2018-05-21 11:44 | PN ---
Subjective Date of Service: 05/21/18 Interval History: Pt requests regular diet. Very upset about the dx. Tried to ambulate with TLSO brace, but was very painful to him We spoke about possible bx of his bone lesions when he is waiting for transfer. He' d prefer to have it done at [facility]. Family History: Findings - urnemarkable Social History: Findings - . 3 children. Son Mp Espinal is his SDM. Smoked 10 days ago. No alcohol abuse. Lives alone. 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 tonsillectomy Objective Active Medications: Albuterol (Ventolin Hfa Inhaler*) 1 puff INH Q6H PRN PRN Reason: COUGH Last Admin: 05/16/18 20:47 Dose: 1 puff Alprazolam (Xanax Tab*) 0.25 mg PO Q8H PRN PRN Reason: ANXIETY Last Admin: 05/21/18 03:54 Dose: 0.25 mg Amlodipine Besylate (Norvasc Tab*) 10 mg PO DAILY [facility] Last Admin: 05/21/18 08:07 Dose: 10 mg Atorvastatin Calcium (Lipitor*) 10 mg PO DAILY [facility] Last Admin: 05/21/18 08:07 Dose: 10 mg Cefuroxime Axetil (Ceftin Tab(*)) 500 mg PO BID [facility] Last Admin: 05/21/18 08:06 Dose: 500 mg Docusate Sodium (Colace Cap*) 100 mg PO BID [facility] Last Admin: 05/21/18 08:07 Dose: 100 mg Enoxaparin Sodium (Lovenox(*)) 40 mg SUBCUT Q24H [facility] Last Admin: 05/20/18 17:15 Dose: 40 mg Finasteride (Proscar Tab*) 5 mg PO DAILY [facility] Last Admin: 05/21/18 08:07 Dose: 5 mg Guaifenesin (Robitussin*) 5 ml PO Q6H PRN PRN Reason: COUGH/RIB PAIN Last Admin: 05/17/18 19:11 Dose: 5 ml Melatonin (Melatonin) 3 mg PO BEDTIME PRN PRN Reason: INSOMNIA Last Admin: 05/20/18 22:51 Dose: 3 mg Meloxicam (Mobic(Nf)) 7.5 mg PO BID [facility] Last Admin: 05/21/18 08:06 Dose: 7.5 mg Mometasone Furoate/Formoterol Fumar (Dulera 200/5 Mdi*) 2 puff INH BID [facility] Last Admin: 05/21/18 07:58 Dose: 2 puff Morphine Sulfate (Morphine Vial*) 2 mg IV Q4H PRN PRN Reason: PAIN Last Admin: 05/21/18 08:02 Dose: 2 mg Oxycodone/Acetaminophen (Percocet 5/325 Tab*) 1 tab PO Q4H PRN PRN Reason: PAIN Last Admin: 05/20/18 22:50 Dose: 1 tab Senna (Senokot Tab*) 2 tab PO BEDTIME PRN PRN Reason: CONSTIPATION Last Admin: 05/19/18 10:41 Dose: 2 tab Tamsulosin HCl (Flomax Cap*) 0.4 mg PO DAILY [facility] Last Admin: 05/21/18 08:07 Dose: 0.4 mg Temazepam (Restoril Cap*) 15 mg PO BEDTIME PRN PRN Reason: INSOMNIA Last Admin: 05/18/18 23:20 Dose: 15 mg Vital Signs - 8 hr 05/21/18 05/21/18 05/21/18 03:54 04:55 05:58 Temperature Pulse Rate Respiratory 18 16 16 Rate Blood Pressure (mmHg) O2 Sat by Pulse Oximetry 05/21/18 05/21/18 07:32 08:02 Temperature 97.6 F Pulse Rate 68 Respiratory 16 17 Rate Blood Pressure 153/92 (mmHg) O2 Sat by Pulse 97 Oximetry Oxygen Devices in Use Now: None Appearance: 73 yo M in nAD, AAOx3 Eyes: No Scleral Icterus, PERRLA Ears/Nose/Mouth/Throat: NL Teeth, Lips, Gums, Mucous Membranes Moist Neck: NL Appearance and Movements; NL JVP, Trachea Midline Respiratory: Symmetrical Chest Expansion and Respiratory Effort, Clear to Auscultation Cardiovascular: NL Sounds; No Murmurs; No JVD, RRR Abdominal: NL Sounds; No Tenderness; No Distention, No Hepatosplenomegaly Lymphatic: No Cervical Adenopathy Extremities: No Edema, No Clubbing, Cyanosis Skin: No Rash or Ulcers, No Nodules or Sclerosis Neurological: Alert and Oriented x 3, NL Muscle Strength and Tone Result Diagrams: 05/20/18 06:34 05/20/18 06:34 Assess/Plan/Problems-Billing Assessment: 73 yo M with h/o smoking, Asthma, obesity, HTN, kidney resection for ca 30 yrs ago, presents with thoracic, pleuritic back pain and bronchitis - Patient Problems (1) Lytic bone lesions on xray Comment: CT showed T8 lytic lesion with 2 more small areas on T spine and one larger one on iliac bone. Pt is aware of likely malignancy. Multiple aother bony lesions noted on MRI on 05/20/18 appreciate neurosurgery and oncology consults. Neurosurgery recommended transfer to [facility] for T spine stabilization surgery that cannot be performed at [facility] has no beds.Pt was accepted at [facility], awaiting bed. OOB with TLSO brace in place. Myeloma work up pending (2) Acute bronchitis Comment: Started cefuroxime 05/16 to completes 7 days tx on 05/22/18. Clinically appears to have resolved Off prednisone (3) Chest pain Comment: Radiating from back pain Stress test Showed small area of reversible ischemia, questionable clinical significance. (4) HTN (hypertension) Comment: Continue home dose amlodipine. controlled (5) H/O unilateral nephrectomy Comment: Needs outpt fup. creat mildly elevated at admission, now back to baseline (6) DVT prophylaxis Comment: lovenox Status and Disposition: Inpatient
[2018-05-21] MEDS: oxyCODONE/Acetamin 5/325 MG* TAB PO PRN ×2 (16:44→22:08)
[2018-05-21] MEDS: Enoxaparin(*) 40 MG/0.4 ML SYR SUBCUT SCH (16:45)
[2018-05-21 19:27] LABS: Beta 2 Microglobulin 3.69 mcg/mL
[2018-05-21] MEDS: Temazepam CAP* 15 MG PO PRN (22:09)
--- NOTE | 2018-05-21 22:33 | PN ---
Progress Note - Progress Note Date of Service: 05/21/18 SOAP: Subjective: [] No events ON. Tolerates po well. Back pain improved. Objective: []VSS AAOx3 MARA, CN II-XII grossly intact Motor 5/5 all extremities Sensory grossly intact to light touch Assessment: []73 yo m T8, T7, T3 lesions, hx of renal Ca. Plan: [] Monitor VS, Neurochecks Awaiting tranfer to [facility] Greatly appreciate IM/Oncology care. Bradley Lara MD
[2018-05-22] MEDS: oxyCODONE/Acetamin 5/325 MG* TAB PO PRN (01:58)
[2018-05-22 07:33] LABS: BUN/Creatinine Ratio 25.2 (8-20); Calcium 8.8 mg/dL (8.6-10.3); EGFR Non-African American 65.3 (>60); Potassium 4.7 mmol/L (3.5-5.0)
[2018-05-22] MEDS: Morphine VIAL* 4 MG/ML VIAL (1 ml vial) IV PRN (08:06)
[2018-05-22] MEDS: ALPRAZolam TAB* 0.25 MG PO PRN (08:09)
[2018-05-22] MEDS: Tamsulosin CAP* 0.4 MG PO SCH (08:11)
[2018-05-22] MEDS: Finasteride TAB* 5 MG PO SCH (08:11)
[2018-05-22] MEDS: CMCS: Meloxicam(NF) 7.5 MG TAB PO SCH (08:11)
[2018-05-22] MEDS: Atorvastatin* 10 MG TAB PO SCH (08:11)
[2018-05-22] MEDS: Docusate CAP* 100 MG PO SCH (08:11)
[2018-05-22] MEDS: ceFUROXime TAB(*) 250 MG PO SCH (08:11)
[2018-05-22] MEDS: amLODIPine TAB* 5 MG PO SCH (08:11)
[2018-05-22] MEDS: Mometasone/Formoter 200/5 MDI INH SCH (08:25)
[2018-05-22 08:52] VITALS: BP 143/84
--- NOTE | 2018-05-22 09:33 | TRS ---
TRANSFER SUMMARY: ADDENDUM: Please note that patient stayed in the hospital over the course of and was transferred for an available bed at [facility] [place] on 05/22/18 in the morning. During the remaining part of his stay at [facility], he had an MRI of his spine obtained which showed metastatic tumor at T3 with compression fracture at T8 vertebral body, the spinous process of T4, and tumor involving T5, T6, and T7. The patient also was noted to have tumor involving the right side of the T9 vertebral body as well as the body of S1 extending into the right pedicle. There was also extensive bulky tumor in the posterior aspect of the left iliac bone that involved adjacent soft tissues and metastatic tumor in the contralateral right iliac bone. It was also noted to have an intrarenal abdominal aortic aneurysm measuring 3.5 cm. Clinically, the patient had been unchanged. His hemodynamics had been stable. He tried to wear his TLSO brace, but had a significant amount of pain in the thoracic spine when trying to ambulate with it. He is being transferred to [facility] [place] in the morning of 05/12/18. For further details of the patient's hospitalization, please see remaining medical records in the computerized system. [id number]/[facility] #: [id number] BRODY
[2018-05-22 17:08] LABS: Kappa Free Light Chain 44.8 mg/dL
[2018-05-22 17:42] LABS: Albumin 2.7 g/dL (3.4-4.7); Gamma Globulin 0.4 g/dL (0.6-1.6); Total Protein(PEP) 7.3 g/dL (6.3 - 7.9)
== END 2018-05-22 08:55 | disposition short-term general hospital (02) | DRG 543 ==
LOC: ED 13:43 → MED 16:57 → OBSVTOIN 05-17 13:57
PROVIDERS: ADMIT Internal Medicine; ATTEND Internal Medicine
PROC: 2W35X3Z Immobilization of Back using Brace (ICD-10-PCS; principal; 2018-05-18)
DX: C79.51 Secondary malignant neoplasm of bone (principal); M84.58XA Pathological fracture in neoplastic disease, other specified site, initial encounter for fracture; Z68.42 Body mass index [BMI] 45.0-49.9, adult; J90 Pleural effusion, not elsewhere classified; C79.49 Secondary malignant neoplasm of other parts of nervous system; I10 Essential (primary) hypertension; E78.5 Hyperlipidemia, unspecified; J44.9 Chronic obstructive pulmonary disease, unspecified; F17.210 Nicotine dependence, cigarettes, uncomplicated; J20.9 Acute bronchitis, unspecified; E66.01 Morbid (severe) obesity due to excess calories; N40.0 Benign prostatic hyperplasia without lower urinary tract symptoms; M19.042 Primary osteoarthritis, left hand; M19.041 Primary osteoarthritis, right hand; G47.33 Obstructive sleep apnea (adult) (pediatric); G47.00 Insomnia, unspecified; I08.1 Rheumatic disorders of both mitral and tricuspid valves; I77.819 Aortic ectasia, unspecified site; I71.4 Abdominal aortic aneurysm, without rupture; I25.9 Chronic ischemic heart disease, unspecified; Z72.89 Other problems related to lifestyle; Z90.5 Acquired absence of kidney; Z80.1 Family history of malignant neoplasm of trachea, bronchus and lung; Z85.53 Personal history of malignant neoplasm of renal pelvis; Z79.01 Long term (current) use of anticoagulants; Z79.52 Long term (current) use of systemic steroids
CPT/HCPCS: 36415; 71046; 71260; 72128; 72156; 72157; 72158; 74177; 78452; 80048; 80053; 81003; 82232; 82550; 82553; 83605; 83735; 83880; 83883; 84155; 84165; 84443; 84484; 85025; 86140; 93005; 93017; 93306; 94640; 99284; 99406; A9270-GY; A9502; A9579; C8929; G0378; G8978-GP-CI; G8978-GP-CK; G8979-GP-CI; G8980-GP-CI; J1650; J2270; J2785; J2930; J7512; Q9967